=== PATIENT | female | born 1960 | race Caucasian/White ===

== ENCOUNTER 2020-11-18 15:38 | Outpatient (CLI) | payer BC, SELFPAY ==
--- NOTE | ~2020-11-18 | MM_ITS ---
EXAMINATION: MM screening hermelinda BI w luis alberto HISTORY: Screening TECHNIQUE: Craniocaudal and mediolateral oblique 3-D tomosynthesis images were obtained and synthetic 2-D images were generated. CAD analysis was submitted and interpreted. COMPARISON: 09/02/2015 BREAST PARENCHYMAL COMPOSITION: There are scattered areas of fibroglandular density. FINDINGS: There is no evidence of suspicious mass, calcification, or architectural distortion to sugg est malignancy in either breast. There has been no suspicious interval change. IMPRESSION: 1. No mammographic evidence of malignancy. 2. Recommend routine screening mammography in one year. BI-RADS Category 1: Negative Reviewed, dictated and finalized at location A.
== END 2020-11-18 15:39 | disposition home or self-care (01) ==
LOC: ANHIMG 15:40
PROVIDERS: PCP Family Medicine; Visit Provider Obstetrics & Gynecology
DX: Z12.31 Encounter for screening mammogram for malignant neoplasm of breast (principal)
CPT/HCPCS: 77063; 77067

== ENCOUNTER 2020-11-23 13:36 | Outpatient (CLI) | payer BC, SELFPAY ==
--- NOTE | ~2020-11-23 | XR_ITS ---
EXAMINATION: XR fl inj shoulder LT - MR/CT DATE: 11/23/2020 14:20 INDICATION: Left shoulder pain. TECHNIQUE: A time-out was performed to verify the patient's name, date of , and procedure to b e performed. The procedure including the risks, benefits, and alternatives was discussed with the pat ient. Risks discussed included bleeding and infection. The patient understood the risks and agreed to proceed. The skin overlying the left glenohumeral joint was prepped and draped in usual sterile fash ion. Anesthetic was administered with 1% lidocaine subcutaneously. A 22 G needle was advanced under fluoroscopic guidance into the joint. Subsequently, injectate consisting of 12 mL of 1:200 Multihan ce, 1:4 1% lidocaine, and 1:4 Omnipaque 240 was instilled. The needle was removed and the entry site was cleaned and dressed. There were no immediate complications. Fluoroscopy exposure time was 0.0 m inutes. The total number of images was 3. FINDINGS: Real-time fluoroscopy demonstrates the needle and contrast in the left glenohumeral joint. IMPRESSION: 1. Successful left glenohumeral joint injection of contrast for subsequent MR arthrography. Reviewed, dictated and finalized at location A. IMPRESSION: 1. Successful left glenohumeral joint injection of contrast for subsequent MR a rthrography.
--- NOTE | ~2020-11-23 | MR_ITS ---
EXAMINATION: MR shoulder LT w con DATE: 11/23/2020 15:39 INDICATION: Left shoulder pain TECHNIQUE: Magnetic resonance imaging (MRI) of the left shoulder was performed following intra-artic ular gadolinium contrast injection and without intravenous contrast. Details of the glenohumeral join t injection have been dictated separately. Sequences included axial T2-weighted FS FSE, axial T1-santhosh ghted FS FSE, coronal oblique T1-weighted FS FSE, coronal oblique T2-weighted FSE, sagittal T2-weight ed FS FSE, sagittal T1-weighted FSE, and ABER (abduction external rotation) T1-weighted FS FSE. COMPARISON: None. FINDINGS: Coracoacromial arch: Status post acromioplasty and distal clavicle resection. Rotator cuff: The subscapularis and teres minor tendons are normal. Postoperative change of prior supraspinatus ten don tear repair with a couple suture anchors along the superior facet of the greater tuberosity. Ther e is residual versus recurrent articular sided tear of the supraspinatus tendon with the tear margin which involves approximately 50% the tendon thickness is retracted approximately 2.5-3 cm medially. T here is contrast imbibition into the remaining intact tendon with small amount of contrast extending more superficially into the subacromial/subdeltoid bursa consistent with a full-thickness perforation . There is however no measurable fluid/contrast filled tear defect. Mild tendinopathy of the distal i nfraspinatus tendon without discrete tear. No significant rotator cuff muscle atrophy. Biceps tendon, glenoid labrum and glenohumeral cartilage: Long head of the biceps tendon is intact. Glenoid labrum and glenohumeral cartilage are normal. Bones and other: Normal marrow signal with no edema, fracture or pathologic marrow replacing process. There is contras t extravasation into the soft tissues surrounding the deep subscapular recess which tracks medially a long the deep and cephalad margins of the subscapularis muscle. IMPRESSION: 1. Status post supraspinatus tendon repair with residual/recurrent articular sided tear involving edil roximately 50% the tendon thickness and with 2.5-3 cm medial retraction. Full-thickness perforation w ith contrast extending into the subacromial/subdeltoid bursa without a measurable full-thickness tear defect. Reviewed, dictated and finalized at location A. IMPRESSION: 1. Status post supraspinatus tendon repair with residual/recurrent articular si ded tear involving approximately 50% the tendon thickness and with 2.5-3 cm med ial retraction. Full-thickness perforation with contrast extending into the sub acromial/subdeltoid bursa without a measurable full-thickness tear defect.
== END 2020-11-23 13:37 | disposition home or self-care (01) ==
LOC: ANHIMG 13:37
PROVIDERS: PCP Family Medicine; Visit Provider Orthopaedic Surgery
DX: M25.512 Pain in left shoulder (principal); Z98.890 Other specified postprocedural states; S46.812A Strain of other muscles, fascia and tendons at shoulder and upper arm level, left arm, initial encounter
CPT/HCPCS: 23350; 73222; A9577

== ENCOUNTER 2021-02-24 00:23 | Day surgery (SDC) | payer BC, SELFPAY ==
[2021-02-21 10:12] VITALS: BMI 35.7
--- NOTE | 2021-02-21 10:22 | SUR.PREOP ---
Report to the Outpatient Waiting Room, entrance under the green pavilion located off [facility], at time __0600__ on date ___02/24/21____. OR Time: __729__. - You and your visitor will be asked a series of questions to screen for COVID 19 for your protection. - A mask is required within the hospital. - Only one visitor is allowed at this time. Patient visitors will be guided where to wait when not with patient. Preoperative COVID Testing Requirements: No COVID Test needed if: (proof is required; if not received patient will have Rapid Test prior to entry) - Patient has received COVID Vaccine at least 14 days prior to procedure date or - Patient has positive COVID test result within last 90 days of surgery date. COVID Test needed if above criteria is not met If not COVID vaccinated a COVID test must be conducted within 72 hours of surgery and patient is asked to isolate self from time of testing until procedure. You will go to the [employer] [facility] for your COVID testing. The [employer] [facility] Testing site is located at the corner of [address] [facility]. You will only be called if COVID results are positive and your surgeon may reschedule your elective surgery date. Patients may have clear liquids (water, carbonated beverages, clear teas, apple juice) until 3 hours prior to surgery with a maximum of 20 ounces. - No food from midnight until time of surgery - Infants may have breast milk until 4 hours before surgery, infant formula 6 hours prior to surgery. - Children will be allowed to drink immediately following surgery. If applicable, please bring a bottle or sippy cup to assist with drinking. Juice, water, soda, and popsicles are readily available. For infants on formula, please bring formula the day of surgery. Pacifiers are allowed. Take the following medications with a SIP of water the morning of surgery: 0430 Medications to discontinue per physician _candesartan/HCTz, Vitamin D Date to take last dose - don't take morning of surgery__ Please no make-up, nail swedish, hairspray, perfume, deodorant, or body powder the day of surgery. No jewelry (including any body piercings) or valuables the day of surgery, leave them at home. Please take a shower or bath the night before, or the morning of, surgery with an antibacterial soap. Wear comfortable, loose fitting clothing. Children are encouraged to wear pajamas. - Jewelry must be removed prior to entering the operating room. Rings and piercings that are not removed may be cut off. - The hospital will not accept responsibility for valuables. - Please leave all valuables, including medications, at home the day of surgery. If you are going home after surgery, a licensed residential recycle driver must drive you home. - NO public transportation without another adult. - We recommend that an adult stay with you for 24 hours following discharge. - We also recommend that you do not drive, make important decision, drink alcoholic beverages, or take any drugs that were not prescribed by your health care provider for at least 24 hours after your discharge time. For Pediatric surgeries, we recommend two adults accompany the child home (only one inside the building at this time). Follow any additional instructions given to you from your surgeon. Telephone instructions given to ____patient and asked if any additional questions and then verbalized understanding. Patient advised to call surgeon office or pre surgery nurse liaison [phone] if any additional questions.
--- NOTE | 2021-02-23 14:40 | P.PNAN_ITS ---
Anes - Initial Pre Proc Eval Procedure: Operation Date: 02/24/21 07:30 Proposed Procedures p Left Open Rotator Cuff Repair - Yasmany Donovan MD Date/Time: 02/23/21 14:40 Surgeon: Yasmany Donovan MD Pre Op Diagnosis: left rotator cuff tear Patient Data Age: 60 Gender: F Height: 1.65 m Weight: 97.52 kg Allergies Allergy/AdvReac Type Severity Reaction Status Date / Time No Known Allergies Allergy Unknown NONE Verified 02/24/21 06:25 Home Medications Medication Instructions Recorded Confirmed Type chlorhexidine gluconate 4 % 1 applic TOPICAL ONCE #237 ml 12/08/20 02/21/21 Rx topical liquid candesartan-hydrochlorothiazid 0.5 tablet PO DAILY 02/21/21 02/24/21 History cholecalciferol (vitamin D3) 1,250 mcg PO WEEKLY 02/21/21 02/24/21 History hydrocodone-acetaminophen 1 tablet PO QID PRN 02/21/21 02/24/21 History Patient hx anesthesia problems: none Family hx anesthesia problems: none Results Review: All pre-operative results and documents have been reviewed as part of the pre-operative evaluation. FORMERLY [facility] Past Medical History Medical History (Updated 02/23/21 @ 14:41 by Richy George MD) Chronic narcotic use HTN (hypertension) Left shoulder pain Obesity Surgical History Surgical History H/O repair of left rotator cuff 2008 H/O repair of right rotator cuff 2011 Family History Family History Other High cholesterol Hypertension Social History Social History (Updated 01/26/21 @ 14:05 by Tete Florian MA) Smoking packs per day: 1.5 Smoking cigarettes per day: 30.0 Years smoked: 10 Smoking pack-years: 15.00 Smoking status: Never smoker Tobacco type: cigarettes Second hand tobacco smoke exposure: No Alcohol intake: never Substance use: never Living arrangements: alone Gender identity (if verbalized by the patient): Female Anes - Eval Final PreProcedure Day of Procedure 02/23/21 14:40 Patient weight: obese Heart: regular rate and rhythm Lungs: clear to auscultation and normal air movement Airway: Mallampati scale class II Neurological: alert and oriented Last oral intake: >/= 8 hours ASA classification: III Emergent: no Anesthetic plan: proceed Anesthesia type and monitoring: general ETT Results Review: All pre-operative results and documents have been reviewed as part of the pre-operative evaluation. Informed Consent: The patient's anesthetic plan and its attendant risks and benefits were discussed with the patient/family/POA. Questions were solicited and answers provided to the satisfaction of the patient/family/POA.
--- NOTE | 2021-02-23 14:42 | WPDANESPNB ---
Anes - Peripheral Nerve Block Date/Time: 02/23/21 14:42 I have discussed with the patient/family/POA the placement of a peripheral nerve block for post-operative pain management, including associated risks, benefits, complications, and side effects. Alternative methods of post-operative analgesia were detailed. Questions were solicited and answers provided to the satisfaction of the patient/family/POA. Time-Out: A pre-procedural Time-Out was completed immediately before starting the procedure and confirmed: Patient Identification, Site, Procedure, Patient Position and the Availability of Requisite Equipment. Clinical Indications: Acute post-operative pain management requested by the operative surgeon. Nerve Block Insertion Note Anes-nerve block: supraclavicular left Patient position: supine Skin prep: chlorhexidine Needle: 22 gauge, stimulating, insulated echogenic needle. Needle length: 80 mm Technique: ultrasound (in plane) Injectate: bupivacaine 0.5% with epi 5 mcg/ml (20cc) Observations: tolerated well Complications: none Procedure start time:: 730 Procedure end time:: 735
[2021-02-24] VITALS (12 sets, daily range): BP systolic 110–142; BP diastolic 53–77; PULSE 59–88; RESP 14–16; TEMP 36.4–36.8; O2SAT 94–100
[2021-02-24] MEDS: ACETAMINOPHEN 500 MG TABLET 1000 MG PO (06:29)
[2021-02-24] MEDS: CELECOXIB 200 MG CAPSULE PO (06:29)
[2021-02-24] MEDS: LACTATED RINGERS 1,000 ML 30 ML IV CONT ×2 (06:58→11:30)
--- NOTE | 2021-02-24 07:40 | WPDHPUPDATE1 ---
History and Physical Update Update Date/Time: 02/24/21 07:40 History and Physical has been reviewed, including an updated exam of the patient. There are NO changes in the patient's condition. Risks, benefits, and alternatives have been discussed and questions answered. Patient agrees to proceed with procedure.
[2021-02-24] MEDS: ceFAZolin 2 GM/D5W 50 ML 2 GM/50 ML BAG IVPB (07:43)
--- NOTE | 2021-02-24 10:58 | SUR.PHASEI ---
1055- pt states pain level in shoulder is a 5, but drifts back of to sleep.
[2021-02-24] MEDS: fentaNYL CITRATE INJ (*CRX) 100 MCG/2 ML VIAL 25 MCG IV PUSH ×2 (11:05→11:18)
--- NOTE | 2021-02-24 11:18 | P.OP_ITS ---
Procedure Note - Detailed Date of Procedure 02/24/21 Pre-op Diagnosis left rotator cuff tear Post-op Diagnosis same Procedure Performed REPAIR LEFT ROTATOR CUFF WITH BICEPS TENODESIS Surgeon Yasmany Donovan MD Anesthesia general Description of Procedure THE PATIENT WAS TAKEN TO THE OPERATING ROOM AND THEN INTUBATED AND PLACED IN THE BEACH CHAIR POSITION. THE LEFT UPPER EXTREMITY WAS PREPPED AND DRAPED IN THE NORMAL STERILE FASHION. AN INCISION WAS MADE OVER THE OLD INCISION IN BETWEEN THE MANOLO-LATERAL ACROMION AND THE AC JOINT. THE FASCIA WAS IDENTIFIED. NEXT A MINI OPEN INCISION WAS MADE THROUGH THE DELTOID MUSCLE EXPOSING THE SUBACROMIAL SPACE. A LIMITED ACROMIOPLASTY WAS PREFORMED. THE ROTATOR CUFF WAS IDENTIFIED. THERE WAS ABUNDANT AMOUNT OF BURSAL TISSUE AND SCAR TISSUE IN THE SUB ACROMIAL SPACE. THE SCAR AND BURSAL TISSUE WAS EXCISED ALLOWING FOR BETTER VISUALIZATION OF THE ROTATOR CUFF. THERE WAS A NEAR FULL THICKNESS TEAR TO THE INSERTION OF THE SUPRASPINATUS. THERE WAS A NEAR FULL THICKNESS TEAR TO THE BICEPS TENDON. THERE WAS A FULL THICKNESS TEAR AT THE CUFF INTERVAL. THE GREATER TUBEROSITY WAS DEBRIDED DOWN TO GOOD BLEEDING BONE. THE ROTATOR CUFF INTERVAL WAS REPAIRED WITH 2 ETHIBOND.THEN 3 ARTHREX 5.5 SUTURE ANCHORS WERE PLACED IN TO GOOD BONE AND HAD VERY GOOD BITES. HALEIGH-KENTRELL TYPE REPAIRS WERE DONE TO THE ROTATOR CUFF AND THERE WAS GOOD APPROXIMATION TO THE GREATER TUBEROSITY. THE REPAIR WAS EXCELLENT. THERE WAS NO IMPINGEMENT ON THE REPAIR FROM THE ACROMION WITH RANGE OF MOTION. THE BICEPS TENDON WAS THEN TENODESED TO THE PROXIMAL HUMERUS JUST DISTAL TO THE HUMERAL HEAD USING 2 ETHIBOND. THE WOUND WAS IRRIGATED WITH COPIOUS AMOUNTS OF ANTIBIOTIC SOLUTION. THE DELTOID MUSCLE WAS REPAIRED WITH #2 FIBER WIRE AND 0 VICRYL SUTURE. THE SUBCUTANEOUS LAYER WAS APPROXIMATED WITH 2- 0 VICRYL. THE SKIN WAS APPROXIMATED WITH 3-0 QUIL AND DERMABOND. STERILE DRESSING WAS APPLIED. PATIENT WAS EXTUBATED. Estimated Blood Loss 50 Complications No immediate complications Condition stable Disposition PACU
[2021-02-24] MEDS: ONDANSETRON INJ 4 MG/2 ML VIAL IV PUSH (11:38)
--- NOTE | 2021-02-24 11:38 | SUR.PHASEI ---
1145- c/o nausea. medicated for same.
--- NOTE | 2021-02-24 13:53 | SUR.PHASEII ---
Dr. Donovan was contacted via cell phone. He will send a prescription to patient's pharmacy for zofran.
[2021-02-24] MEDS: SCOPOLAMINE 1.5 MG PATCH TRANSDERM (13:58)
== END 2021-02-24 14:17 | disposition home or self-care (01) ==
PROVIDERS: PCP Family Medicine; Visit Provider Orthopaedic Surgery
PROC: (CPT 23420; principal; 2021-02-24 07:30)
DX: S46.012A Strain of muscle(s) and tendon(s) of the rotator cuff of left shoulder, initial encounter (principal); S46.112A Strain of muscle, fascia and tendon of long head of biceps, left arm, initial encounter; V91.83XA Other injury due to other accident to other powered watercraft, initial encounter; F17.210 Nicotine dependence, cigarettes, uncomplicated; G89.18 Other acute postprocedural pain; I10 Essential (primary) hypertension; E66.9 Obesity, unspecified; Z68.35 Body mass index [BMI] 35.0-35.9, adult
CPT/HCPCS: 64415; 23430; 23410; A9270; C1713; J0330; J0690; J1100; J1885; J2250; J2370; J2405; J2704; J2710; J3010; J7120

== ENCOUNTER 2021-04-18 16:00 | Outpatient (RCR) | payer BC, SELFPAY ==
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
--- NOTE | 2021-04-17 11:25 | PCPTNOTE ---
Patient called & cancelled scheduled appointment this date due to having to work.
--- NOTE | 2021-05-15 09:51 | PCPTNOTE ---
Admitting Provider: Attending Provider: Yasmany Donovan MD Patient:Leticia Millan Date of :1960 Physical Therapy Discharge Summary Patient has not returned for any further treatments since 04/18/2021, therefore she will be discharged at this time. Patient?s initial visit was on 03/17/2021 08:30 and she had a total of 6 visits with 5 missed visits. The goals have been not met due to limited visits received. Thank you for referring this patient to [facility]. Please review, sign, date and return this discharge summary LUISA. I have been updated about the patient's current status and I agree with discharge from the above service at this time. Referring Physician Date
== END 2021-05-15 14:25 | disposition home or self-care (01) ==
LOC: ANHPT 16:00
PROVIDERS: PCP Family Medicine; Visit Provider Orthopaedic Surgery
DX: Z48.89 Encounter for other specified surgical aftercare (principal)
CPT/HCPCS: 97014; 97110; 97140; 97162; G0283

== ENCOUNTER 2022-01-23 16:33 | Outpatient (CLI) | payer BC, SELFPAY ==
--- NOTE | ~2022-01-23 | MM_ITS ---
EXAMINATION: MM screening hermelinda BI w luis alberto HISTORY: Screening TECHNIQUE: Craniocaudal and mediolateral oblique 3-D tomosynthesis images were obtained and synthetic 2-D images were generated. CAD analysis was submitted and interpreted. COMPARISON: Comparison to multiple prior studies sequentially, with oldest reviewed study dated 09/01. BREAST PARENCHYMAL COMPOSITION: Breast composition is almost entirely fatty FINDINGS: There is no evidence of suspicious mass, calcification, or architectural distortion to sugg est malignancy in either breast. There has been no suspicious interval change. IMPRESSION: 1. No mammographic evidence of malignancy. 2. Recommend routine screening mammography in one year. BI-RADS Category 1: Negative Reviewed, dictated and finalized at location A.
== END 2022-01-23 16:34 | disposition home or self-care (01) ==
PROVIDERS: PCP Family Medicine; Visit Provider Obstetrics & Gynecology
DX: Z12.31 Encounter for screening mammogram for malignant neoplasm of breast (principal)
CPT/HCPCS: 77063; 77067

== ENCOUNTER 2024-01-17 14:27 | Outpatient (CLI) | payer BC, SELFPAY ==
[2024-01-17 15:00] LABS: Anion Gap 7 mmol/L (4-12); Blood Urea Nitrogen 15 mg/dL (7-17); Calcium 8.9 mg/dL (8.4-10.2); Carbon Dioxide 33 mmol/L (22-30); Chloride 98 mmol/L (98-107); Estimated Glomerular Filt Rate > 60; Glucose 126 mg/dL (65-110); Potassium 3.7 mmol/L (3.4-5.0); Sodium 138 mmol/L (137-145)
== END 2024-01-17 14:28 | disposition home or self-care (01) ==
LOC: ANHLAB 14:30
PROVIDERS: PCP Family Medicine; Visit Provider Anesthesiology
DX: Z79.899 Other long term (current) drug therapy (principal)
CPT/HCPCS: 36415; 80048

== ENCOUNTER 2024-01-27 00:15 | Day surgery (SDC) | payer BC, SELFPAY ==
[2024-01-16 09:46] VITALS: BMI 35.4
--- NOTE | 2024-01-16 09:47 | PC.NURSE ---
Report to the Outpatient Waiting Room, entrance under the green pavilion located off [facility], at time _0630_ on date _[id number]_. Planned Procedure Time: _0830_.? Time changes happen often and if your time is changed the preop area will call you the afternoon before. - You and your visitor will be asked to self-screen and do not enter if you have any COVID symptoms. Please call surgeon if you need to reschedule. - A mask is optional within the hospital at this time. Patients may have clear liquids (water, carbonated beverages, clear teas, apple juice) until 3 hours prior to surgery with a maximum of 20 ounces. - No food from midnight until time of surgery and no smoking Take only the following medications with a SIP of water on the morning of surgery: ___Hydrocodone/acetaminophen if needed. DO NOT STOP ANY OF YOUR OTHER PRESCRIPTION MEDICATIONS PRIOR TO SURGERY EXCEPT THE FOLLOWING Medications to discontinue per physician ____Ibuprofen per Dr Espino. Date to take last dose Please no make-up, nail brit[place] virgin islander, hairspray, perfume, deodorant, or body powder the day of surgery.? No jewelry (including any body piercings) or valuables the day of surgery, leave them at home.? Please take a shower or bath the night before, or the morning of, surgery with an antibacterial soap.? Wear comfortable, loose fitting clothing.? . - Jewelry must be removed prior to entering the operating room.? Rings and piercings that are not removed may be cut off. - The hospital will not accept responsibility for valuables.? - Please leave all valuables, including medications, at home the day of surgery. If you are going home after surgery, a licensed team otr truck driver must drive you home.? - NO public transportation without another adult if you receive anesthesia. - We recommend that an adult stay with you for 24 hours following discharge. - We also recommend that you do not drive, make important decision, drink alcoholic beverages, or take any drugs that were not prescribed by your health care provider for at least 24 hours after your discharge time. Follow any additional instructions given to you from your surgeon. Telephone instructions given to _Kimberly___and asked if any additional questions and then verbalized understanding. Patient advised to call surgeon office or pre surgery nurse liaison [phone] if any additional questions.
--- NOTE | 2024-01-26 07:46 | P.HP_ITS ---
H&P: HPI History of Present Illness Date/Time: 01/26/24 07:46 Chief Complaint: Thickened endometrium Narrative: Leticia is a 63yo postmenopausal G0, who presents for surgery. She presented to her [facility] 11/2023 and endorsed some RLQ pain. She has a normal pap 11/2022. She is not sexually active. She denied any breast issues. No PMB, but LABORATORY CHEMIST US was performed for the RLQ pain and she was found to have thickened and irregular endometrial lining. Review of Systems Constitutional: Constitutional: Denies chills, Denies fever(s) and Denies headache(s) Eyes: Eyes: Denies change in vision ENT: Denies dizziness and Denies headache(s) Cardiovascular: Cardiovascular: Denies chest pain and Denies dyspnea Respiratory: Respiratory: Denies cough and Denies dyspnea Gastrointestinal: Gastrointestinal: Denies abdominal pain and Denies change in stool character Genitourinary: Genitourinary: Denies abnormal menses, Reports pelvic pain, Denies vaginal discharge, Denies vaginal odor and Denies vaginal pruritus Neurologic: Denies dizziness and Denies headache(s) Psychiatric: Psychiatric: Denies anxiety and Denies depression [facility] Past Medical History Medical History Chronic narcotic use HTN (hypertension) Left shoulder pain Obesity Surgical History Surgical History H/O repair of left rotator cuff 2008 H/O repair of right rotator cuff 2011 Family History Family History Other High cholesterol Hypertension Social History Social History Smoking packs per day: 1 Smoking cigarettes per day: 20.0 Years smoked: 10 Smoking pack-years: 10.00 Smoking status: Former smoker Tobacco type: cigarettes Second hand tobacco smoke exposure: No Smoking end date: 01/15/94 Alcohol intake: current Substance use: never Substance use type: opiates Lack of Transportation: No Lack of Food: Never True Current Housing: I Have Housing Concerned About Future Housing: No Difficulty Paying Gas/Electric Bills: No Difficulty Paying for Meds: No Currently Unemployed: No Education: High School Diploma/GED Difficulty w/ Childcare or Family Care: No Living arrangements: with family Occupation/Education: occupation Additional occupation/education comments: [employer] Gender identity (if verbalized by the patient): Female Sexual Orientation (if Verbalized by the Patient): Straight or Heterosexual Spiritual care concerns: No Meds Home Medications and Allergies Home Medications Medication Instructions Recorded Confirmed Type hydrocodone 10 mg-acetaminophen 1 tablet PO QID PRN Pain 11/23/22 01/16/24 History 325 mg tablet candesartan 32 0.5 tablet PO DAILY 11/27/23 01/16/24 History mg-hydrochlorothiazide 25 mg tablet ibuprofen 800 mg tablet 800 mg PO TID PRN Pain 11/27/23 01/16/24 History Allergies Allergy/AdvReac Type Severity Reaction Status Date / Time No Known Allergies Allergy Unknown NONE Verified 01/16/24 09:39 Exam Const: General: cooperative, healthy appearing, comfortable and no acute distress Orientation/consciousness: patient oriented x3 Resp: Effort & Inspection: normal respiratory effort Cardio: Rate: regular rate GI: Inspection: normal to inspection GI Palp: No abdominal tenderness and Yes Soft to palpation : Other: deferred to OR Skin: General skin exam: normal color Neuro: General: patient oriented x3 Extrem: General: normal to inspection Psych: Appearance: grossly normal Affect: normal affect Attitude: cooperative Assessment and Plan Assessment and plan (1) Endometrial thickening on ultrasound: Code(s): R93.89 - Abnormal findings on diagnostic imaging of other specified body structures Status: Acute Plan - Thickened lining with irregularity noted on LABORATORY CHEMIST US - Proceed with hysteroscopy with D&C - Risks and benefits discussed in detail
[2024-01-27] MEDS: ACETAMINOPHEN 500 MG TABLET 1000 MG PO (07:04)
[2024-01-27 07:08] VITALS: BP 139/75; PULSE 67; RESP 18; TEMP 36.6; O2SAT 100
--- NOTE | 2024-01-27 07:13 | WPDHPUPDATE1 ---
History and Physical Update Update Date/Time: 01/27/24 07:13 History and Physical has been reviewed, including an updated exam of the patient. There are NO changes in the patient's condition. Risks, benefits, and alternatives have been discussed and questions answered. Patient agrees to proceed with hysteroscopy with D&C.
--- NOTE | 2024-01-27 07:18 | P.PNAN_ITS ---
Anes - Initial Pre Proc Eval Procedure: Operation Date: 01/27/24 08:30 Proposed Procedures p Hysteroscopy Dilation and Curettage - Ritika Espino MD Date/Time: 01/27/24 07:18 Surgeon: Ritika Espino MD Pre Op Diagnosis: Endometrial Hyperplasia Patient Data Age: 63 Gender: F Height: 1.65 m Weight: 96.3 kg Last Vital Signs Temp 36.6 C 01/27/24 07:08 Pulse 67 01/27/24 07:08 Resp 18 01/27/24 07:08 BP 139/75 01/27/24 07:08 Pulse Ox 100 01/27/24 07:08 O2 Del Method Room Air 01/27/24 07:08 Allergies Allergy/AdvReac Type Severity Reaction Status Date / Time No Known Allergies Allergy Unknown NONE Verified 01/27/24 06:53 Home Medications Medication Instructions Recorded Confirmed Type hydrocodone 10 mg-acetaminophen 1 tablet PO QID PRN Pain 11/23/22 01/27/24 History 325 mg tablet candesartan 32 0.5 tablet PO DAILY 11/27/23 01/27/24 History mg-hydrochlorothiazide 25 mg tablet ibuprofen 800 mg tablet 800 mg PO TID PRN Pain 11/27/23 01/27/24 History Patient hx anesthesia problems: none Family hx anesthesia problems: none Results Review: All pre-operative results and documents have been reviewed as part of the pre- operative evaluation. [facility] Past Medical History Medical History Chronic narcotic use HTN (hypertension) Left shoulder pain Obesity Surgical History Surgical History H/O repair of left rotator cuff 2008 H/O repair of right rotator cuff 2011 Family History Family History Other High cholesterol Hypertension Social History Social History Smoking packs per day: 1 Smoking cigarettes per day: 20.0 Years smoked: 10 Smoking pack-years: 10.00 Smoking status: Former smoker Tobacco type: cigarettes Second hand tobacco smoke exposure: No Smoking end date: 01/15/94 Alcohol intake: current Substance use: never Substance use type: opiates Lack of Transportation: No Lack of Food: Never True Current Housing: I Have Housing Concerned About Future Housing: No Difficulty Paying Gas/Electric Bills: No Difficulty Paying for Meds: No Currently Unemployed: No Education: High School Diploma/GED Difficulty w/ Childcare or Family Care: No Living arrangements: with family Occupation/Education: occupation Additional occupation/education comments: [employer] Gender identity (if verbalized by the patient): Female Sexual Orientation (if Verbalized by the Patient): Straight or Heterosexual Spiritual care concerns: No Anes - Eval Final PreProcedure Day of Procedure 01/27/24 07:18 Patient weight: obese Heart: regular rate and rhythm Lungs: clear to auscultation Airway: Mallampati scale class II Neurological: alert and oriented Last oral intake: >/= 8 hours ASA classification: III Emergent: no Anesthetic plan: proceed Anesthesia type and monitoring: general GIVS and standard monitoring Results Review: All pre-operative results and documents have been reviewed as part of the pre- operative evaluation. Informed Consent: The patient's anesthetic plan and its attendant risks and benefits were discussed with the patient/family/POA. Questions were solicited and answers provided to the satisfaction of the patient/family/POA.
[2024-01-27] MEDS: LACTATED RINGERS 1,000 ML 30 ML IV CONT (07:29)
[2024-01-27 08:55] VITALS: BP 118/62; PULSE 65; RESP 12; O2SAT 95
--- NOTE | 2024-01-27 08:57 | P.OP_ITS ---
Procedure Note - Detailed Date of Procedure 01/27/24 Pre-op Diagnosis Thickened Endometrium noted on WIRER MAINTENANCE US Post-op Diagnosis Same Procedure Performed Hysteroscopy with D&C Surgeon Ritika Espino MD Anesthesia MAC Findings Stenotic cervix with scaring. Small polyp noted on posterior uterine wall/upper portion of cervix. Uterine cavity with fluid, but also distorted due to scar tissue; left tubal ostia visualized, right not fully seen. Good hemostasis at end of case. Fluid deficit: 140cc Description of Procedure Leticia was taken to the operating room where she was placed under sedation without complications. She was then prepped and draped in the usual sterile fashion in the dorsal lithotomy position with her legs in low Jsutin stirrups. A time-out was performed and no perioperative antibiotics were indicated. A bivalve speculum was placed within the vagina where the cervix was easily identified. The anterior lip of the cervix was grasped with a single-tooth tenaculum. The cervix was partially dilated, enough to allow for the hysteroscope to be placed within the cervix. The hysteroscope was slowly and carefully advanced into the uterine cavity with the above findings noted. The Aveta shaver was then used to remove the polyp and sample the entire the cavity. Some of the scar tissue was removed and the left tubal ostia was better visualized. Good hemostasis was noted. All instruments were removed from the vagina. Sponge, lap, instrument, and needle counts were correct at the end of the procedure. Patient was awoken from anesthesia and taken to recovery with plans of same-day discharge home. Estimated Blood Loss 5 IV Fluids 400 Pathology Yes (Endometrial shavings) Complications No immediate complications Condition Stable Disposition Same day [facility] Billing Surgery - Charge Forward: Surgery Billing
[2024-01-27 09:25] VITALS: BP 126/73; PULSE 60; RESP 16
[2024-01-27 09:55] VITALS: BP 129/62; PULSE 61; RESP 16
== END 2024-01-27 10:00 | disposition home or self-care (01) ==
PROVIDERS: PCP Family Medicine; Visit Provider Obstetrics & Gynecology
PROC: 0U5B8ZZ Destruction of Endometrium, Via Natural or Artificial Opening Endoscopic (ICD-10-PCS; CPT 58563; principal; 2024-01-27 08:30)
DX: R93.89 Abnormal findings on diagnostic imaging of other specified body structures (principal); N84.0 Polyp of corpus uteri; N88.2 Stricture and stenosis of cervix uteri; I10 Essential (primary) hypertension; E66.9 Obesity, unspecified; Z68.35 Body mass index [BMI] 35.0-35.9, adult; Z79.891 Long term (current) use of opiate analgesic; Z79.899 Other long term (current) drug therapy; Z79.1 Long term (current) use of non-steroidal anti-inflammatories (NSAID); Z98.890 Other specified postprocedural states; Z87.891 Personal history of nicotine dependence
CPT/HCPCS: 58558; 88305; A9270; J1100; J2003; J2250; J2405; J2704; J3010; J7030; J7120

== ENCOUNTER 2024-07-12 16:30 | Emergency (ER) | payer OTHER, SELFPAY ==
[2024-07-12 16:39] VITALS: BP 148/73; PULSE 75; RESP 20; TEMP 36.6; O2SAT 100
--- NOTE | 2024-07-12 16:39 | ED_ITS ---
HPI - Wound/Laceration General Chief Complaint: Wound/Laceration Stated Complaint: Right Hand Thumb Laceration Time Seen by Provider: 07/12/24 16:39 Source: patient, RN notes reviewed and old records reviewed Mode of arrival: ambulatory Limitations: no limitations History of Present Illness HPI narrative: 63-year-old female presents to [facility] with a right outer aspect of the thumb laceration. happened just prior to arrival. Patient was slicing potatoes possibly with a mandoline. Patient reports last Tdap 2 years ago Related Data Home Medications ?Medication ?Instructions ?Recorded ?Confirmed ?Last Taken ?Type candesartan 32 0.5 tablet PO DAILY 11/27/23 02/13/24 01/27/24 History mg-hydrochlorothiazide 25 mg tablet Allergies Allergy/AdvReac Type Severity Reaction Status Date / Time No Known Allergies Allergy Unknown NONE Verified 07/12/24 16:32 Review of Systems Review of Systems: All systems reviewed & are unremarkable except as noted in HPI and below Constitutional: Constitutional: Reports no additional constitutional complaints ENT: Reports system reviewed and no additional complaints, except as documented Cardiovascular: Cardiovascular: Reports no additional cardiovascular complaints, Denies chest pain and Denies dyspnea Respiratory: Respiratory: Reports no additional respiratory complaints, Denies chest congestion, Denies cough and Denies dyspnea Musculoskeletal: Musculoskeletal: Reports no additional musculoskeletal complaints Integumentary/Breasts: Skin/Breast: Reports as per HPI [facility] Past Medical History Medical History Chronic narcotic use HTN (hypertension) Obesity Left shoulder pain Surgical History Surgical History History of hysteroscopy (01/27/24) hysteroscopy D&C/ benign pathology of polyp H/O repair of right rotator cuff 2011 H/O repair of left rotator cuff 2009 Family History Family History Other High cholesterol Hypertension Social History Social History Smoking packs per day: 1 Smoking cigarettes per day: 20.0 Years smoked: 10 Smoking pack-years: 10.00 Smoking status: Former smoker Tobacco type: cigarettes Second hand tobacco smoke exposure: No Smoking end date: 01/15/94 Alcohol intake: current Substance use: never Substance use type: opiates Lack of Transportation: No Lack of Food: Never True Current Housing: Decline to Answer Concerned About Future Housing: Decline to Answer Difficulty Paying Gas/Electric Bills: Decline to Answer Difficulty Paying for Meds: Decline to Answer Currently Unemployed: Decline to Answer Education: Decline to Answer Difficulty w/ Childcare or Family Care: Decline to Answer Living arrangements: with family Occupation/Education: occupation Additional occupation/education comments: [employer] Gender identity (if verbalized by the patient): Female Sexual Orientation (if Verbalized by the Patient): Straight or Heterosexual Spiritual care concerns: No Comments At the time of my signature, I reviewed and agree with the nursing past medical, surgical, social, and family history. There is no relevant family history pertinent to the patient complaint. Exam Const: General: cooperative, healthy appearing, comfortable, no acute distress, well developed, alert and well nourished Nutritional Appearance: well nourished Orientation/consciousness: patient oriented x3 Limitations: no limitations HENMT: Head: normal to inspection Eyes: General: appearance normal, both eyes and all related structures Alignment and Position: alignment normal Neck: Neck: normal visual inspection, full ROM, no lymphadenopathy and no meningeal signs Chest: Chest palpation & inspection: normal inspection of the chest Resp: Effort & Inspection: normal respiratory effort and able to speak in complete sentences Cardio: Rate: regular rate Skin: General skin exam: normal color and no rashes or lesions noted Other: outer aspect right thumb, 2.5 cm flap of skin. Bleeding is controlled. Sensation intact. Full range of motion is noted. Neuro: General: patient oriented x3, gait normal, moves all extremities and no meningeal signs Cognition (Neuro): normal cognition Speech: normal speech Gait exam (Neuro): Normal gait present Extrem: General: normal to inspection, full ROM, capillary refill normal and normal gait Psych: Appearance: grossly normal and well kempt Mental Status: mental status grossly normal Speech and movement: Normal speech and movement present and Clear speech present Affect: normal affect Attitude: cooperative Course Course Level of Care: Express Care Visit Vital Signs Vital signs: Vital Signs Temperature 97.9 F 07/12/24 16:39 Pulse Rate 75 07/12/24 16:39 Respiratory Rate 20 07/12/24 16:39 Blood Pressure 148/73 H 07/12/24 16:39 Pulse Oximetry 100 07/12/24 16:39 Oxygen Delivery Room Air 07/12/24 16:39 Temperature 97.9 F 07/12/24 16:39 Pulse Rate 75 07/12/24 16:39 Respiratory Rate 20 07/12/24 16:39 Blood Pressure 148/73 H 07/12/24 16:39 Pulse Oximetry 100 07/12/24 16:39 Oxygen Delivery Room Air 07/12/24 16:39 Reviewed Procedures Laceration Laceration 1: Date: 07/12/24 Time: 17:22 Site: hand Side (If applicable): right Size (cm): 2.5 Description: flap Depth: simple, single layer Local Anesthetic: lidocaine 1% Amount of anesthesia used (mL): 4 Pre-repair: wound explored and irrigated (300) ====== Skin Level ====== Skin layer closed with: nylon Size (cm): 5-0 Number of sutures: 4 ====== Subcutaneous Layer ====== ====== Muscle Layer ====== ====== Tendon Layer ====== MDM - Wound/Laceration MDM Narrative Medical decision making narrative: Patient sitting comfortably in exam. Nontoxic, vitals stable. Patient in no acute distress. Patient presents with laceration to the thumb, concern for partial of motion versus flap skin, discussed possibility that we can place the natural bandage , place forced sutures but still the skin may away as well. Encourage patient to follow-up with primary care provider to check on Tdap. Patient appropriate for outpatient treatment with follow-up Discharge instructions reviewed with patient, as well as provided in writing per nursing staff. The instructions also include specific and strict return/GO TO THE ER as well as f/u information. All questions have been answered, and the patient deny any further questions with discharge and discharge plan. Some parts of this dictation were generated by voice recognition software and may contain typographical and/or grammatical inaccuracies. Differential Diagnosis Differential diagnosis: Likely laceration, abrasion and avulsion of skin Critical Care Time Critical Care Time Critical Care Time: No Discharge Plan Discharge Clinical Impression: Laceration of thumb Patient Disposition: Home, Self-Care Condition: Stable Instructions: Antibiotic Form, Care For Your Stitches (DC), Finger Laceration (ED) Additional Instructions: take Tylenol per package instructions as needed for pain Rest, ice and elevate every 2-3 hours for 15-20 minutes follow-up with your primary care provider in 10 days to have your sutures removed. do not soak your finger. Please wash twice a day with warm soapy water, pat dry. When not at home please keep it covered with a Band-Aid. One at home try leaving open to air for minimum of 4-5 hours per day. Please call your primary care provider tomorrow morning to find out when your last tetanus shot was. If it is under 5 years it is highly recommended that you update your tetanus Patient Language: Upper Sorbian Prescriptions: No Action candesartan-hydrochlorothiazid 32-25 mg tablet 0.5 tablet PO DAILY ibuprofen 800 mg tablet 800 mg PO TID Qty: 30 0RF Follow-up/Referrals: Sulaiman,Treasure High MD [Primary Care Provider] [facility] Time of Disposition: 17:33
[2024-07-12] MEDS: LIDOCAINE 1% LOCAL INJ 2 ML AMPUL 4 ML INFILTRATE (16:53)
== END 2024-07-12 17:40 | disposition home or self-care (01) ==
PROVIDERS: Emergency Provider Nurse Practitioner; PCP Family Medicine
DX: S61.011A Laceration without foreign body of right thumb without damage to nail, initial encounter (principal); W45.8XXA Other foreign body or object entering through skin, initial encounter; Y93.G1 Activity, food preparation and clean up; I10 Essential (primary) hypertension; E66.9 Obesity, unspecified; Z68.35 Body mass index [BMI] 35.0-35.9, adult; Z87.891 Personal history of nicotine dependence
CPT/HCPCS: 12001; 99212; G0463; J2003

== ENCOUNTER 2024-11-28 00:10 | Emergency (ER) | payer OTHER, SELFPAY ==
[2024-11-28 00:13] VITALS: PULSE 82; RESP 18; TEMP 37.1; O2SAT 98
--- OUTSIDE RECORDS SUMMARY | 2024-11-28 00:14 | XMS_ITS | Encounter Summary ---
Author Organization [facility] Facility Care Team Providers Care Precision Machinist Name Role Phone Russell Geiger DO Primary Care Provider + Treasure Hilario MD Primary Care Provider [phone] Constantin Alexander MD Unavailable [phone] Will Patel MD Unavailable [phone] Encounter Details Date Type Department Care Team (Latest Contact Info) Description 10/24/2016 Orders Only [facility]INCONV Provider, MD Halie [address] [place] [id number] Social History Tobacco Use Types Packs/Day Years Used Date Smoking Tobacco: Never Assessed Comments Unknown Sex and Gender Information Value Date Recorded Sex Assigned at Not on file 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 Historical Provider Final Res ult documented in this encounter Visit Diagnoses Not on filedocumented in this encounter Care Teams Precision Machinist Relationship Specialty Start Date End Date Russell Geiger DO [facility] [address] PCP - General 11/05/18 01/07/20 Treasure Hilario MD [address] [address] PCP - General Family Medicine 01/08/20 Constantin Alexander MD [address] [place] [address] [address] OL[address] [place] [id number] Anesthesiologist Pain Management 04/02/22 11/28/23 Will Patel MD [address] [place] [address] [address]IV[address] [place] [id number] Consulting Physician Anesthesiology 11/29/23 documented as of this encounter
--- OUTSIDE RECORDS SUMMARY | 2024-11-28 00:14 | XMS_ITS | Encounter Summary ---
Author Organization [facility] Facility Care Team Providers Care Inspector Penetrant Name Role Phone Russell Geiger DO Primary Care Provider + Treasure Hilario MD Primary Care Provider [phone] Constantin Alexander MD Unavailable [phone] Will Patel MD Unavailable [phone] Encounter Details Date Type Department Care Team (Latest Contact Info) Description 09/24/2014 Orders Only [facility]INCONV Provider, MD Halie [address] [place] [id number] Social History Tobacco Use Types Packs/Day Years Used Date Smoking Tobacco: Never Assessed Comments Unknown Sex and Gender Information Value Date Recorded Sex Assigned at Not on file 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 Historical Provider Final Res ult documented in this encounter Visit Diagnoses Not on filedocumented in this encounter Care Teams Inspector Penetrant Relationship Specialty Start Date End Date Russell Geiger DO [facility] [address] [address] PCP - General 11/05/18 01/07/20 Treasure Hilario MD [address] [address] PCP - General Family Medicine 01/08/20 Constantin Alexander MD [address] [place] [address] [address] [place] [id number] Anesthesiologist Pain Management 04/02/22 11/28/23 Will Patel MD [address] [place] [address] [address]IV[address] [place] [id number] Consulting Physician Anesthesiology 11/29/23 documented as of this encounter
--- OUTSIDE RECORDS SUMMARY | 2024-11-28 00:14 | XMS_ITS | Clinical Summary ---
Author Organization [facility] Address [address] [place] [address] Care Team Providers Care Hat Brim Curler Name Role Phone Treasure Hilario Primary Care Provider [phone] Allergies No known active allergies Medications ibuprofen (MOTRIN) 800 MG tabletIndication s:Nontraumatic incomplete tear of left rotator cuff take 1 tablet by mouth three times daily as needed for pain 270 tablet 1 04/03/20 23 Active Candesartan Cilexetil-HCTZ 32-25 MG TabIndications:P rimary hypertension Take 1 tablet by mouth daily. 90 tablet 3 11/27/19 25 Active HYDROcodone-acet aminophen (NORCO) 10-325 MG tabletIndication s:Chronic Pain Take 1 tablet by mouth every 6 (six) hours as needed for Pain. Indications : Chronic Pain 28 tablet 12/13/19 24 025 Discontinued(Th erapy completed) Candesartan Cilexetil-HCTZ 32-25 MG TabIndications:E ssential hypertension TAKE 1 TABLET BY MOUTH EVERY DAY 90 tablet 08/14/19 25 025 Discontinued Candesartan Cilexetil-HCTZ 32-25 MG TabIndications:P rimary hypertension TAKE 1 TABLET BY MOUTH EVERY DAY 90 tablet 11/12/19 25 025 Discontinued(Re order) Candesartan Cilexetil-HCTZ 32-25 MG TabIndications:P rimary hypertension Take 1 tablet by mouth daily. 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 07/2019 HNP (herniated nucleus pulposus), lumbar 018 Overview (11/05/2019): Formerly followed by IPM (Dr Hair) Essential hypertension 12/21/2016 Post-traumatic osteoarthritis 12/21/2016 Encounters Date Type Department Care Team Description 11/26/2024 4:20 PM CDT Office Visit [facility] Family Medicine - [address], [address] [place] [address] Treasure Hilario, DO Physical (Patient here today for annual physical.) 11/26/2024 Travel from Last 3 Months Immunizations Immunization Administration Dates Next Due FLUCELVAX (ccIIV3, TRIVALENT, 0.5mL) 03/07/2024 Flucelvax 2 YRS+ (Multi-Dose Vial) 05/08/2018 Flucelvax 6 Months+ (Prefill ed Syringe) 01/19/2020 Fluzone 6 Months+ Quad (0.5 mL Prefilled Syringe) 12/30/2020 Influenza Adult (Generic) 03/29/2023,,01/19/2020,2018 MODERNA COVID-19 (12+) MRNA, LNP-S, PF, 100 MCG/ 0.5 ML DOSE 08/12/2020,07/15/2020 MODERNA COVID-19 (DRAFTER CHIEF DESIGN AIMEE HEIDI), MRNA, LNP-S, PF, 50 MCG/ 0.25 ML DOSE 07/21/2021 Shingrix 03/29/2023 Tdap (Generic) 03/26/2018 Family History Medical History Relation Comments Hypertension Brother Cancer Maternal Grandmother family preservation caseworker Cancer Mother lung Hypertension Mother Relation Status Comments Brother Father Maternal Grandmother Mother Social History Tobacco Use Types Packs/Day Years Used Date Smoking Tobacco: Former Cigarettes 1 10 1 - 01/13/2006 Passive Smoke Exposure: Past Smokeless Tobacco: Never Tobacco Cessation:Counseling Given: No Comments:Stinks but i was thinner Alcohol Use Standard Drinks/Week Comments Yes 0 (1 standard drink = 0.6 oz pur e alcohol) 1 lizandro weekly PHQ-2 Answer Date Recorded Patient Health Questionnaire-2 Score 0 11/26/2024 Comments No Sex and Gender Information Value Date Recorded Sex Assigned at Female 11/26/2024 4:26 PM CDT Legal Sex Female 4:05 PM CDT Gender Identity Female 11/26/2024 4:26 PM CDT Sexual Orientation Not on file Last Filed Vital Signs Vital Sign Reading Time Taken Comments Blood Pressure 132/76 11/26/2024 4:20 PM CDT Pulse 73 11/26/2024 4:20 PM CDT Temperature 36.9 C (98.4 F) 11/26/2024 4:20 PM CDT Respiratory Rate 18 11/26/2024 4:20 PM CDT Oxygen Saturation 98% 11/26/2024 4:20 PM CDT Inhaled Oxygen Concentration - - Weight 101 kg (222 lb 9.6 oz) 11/26/2024 4:20 PM CDT Height 163.8 cm (5' 4.5) 11/26/2024 4:20 PM CDT Body Mass Index 37.62 11/26/2024 4:20 PM CDT Plan of Treatment Health Maintenance Due Date Last Done Comments Cervical Cancer Screening Pap Smear (Age 30 to 64) Every 3 Years 1960 Pneumococcal Vaccine: 50+ Years (1 of 1 - PCV) 2010 Zoster Vaccines (2 of 2) 05/24/2023 03/29/2023 COVID-19 Vaccine ( season) 2023 01/10/2022, 07/21/2021, 08/12/2020, Additional history exists Mammogram Screening 01/24/2024 01/23/2022, Colorectal Cancer Screening FIT-DNA (3 Years) 10/18/2024 10/18/2021, 10/18/2021 Annual Physical 11/26/2025 11/26/2024, 0811/2023, 10/05/2021, Additional history exists Cervical Cancer Screening Pap with HPV Testing (Age 30 to 64) Every 5 Years 11/24/2027 11/23/2022 Cervical Cancer Screening with HPV 11/24/2027 DTaP, Tdap and Td Vaccines (2 - Td or Tdap) 03/26/2028 03/26/2018 RSV Immunization or 60+ Years (1 - 1-dose 75+ series) 11/17/2035 Hepatitis C Completed 12/30/2020 PHQ-2 (Physician Marshall) Completed 11/26/2024 Meningococcal B Vaccine Aged Out No l onger eligible based on patient's age to complete this topic Meningococcal Vaccine Aged Out No elbert mike eligible based on patient's age to complete this topic RSV Immunizations Under 20 Months Aged Out No longer eligible based on patient's age to complete this topic Procedures Procedure Name Priority Date/Time Associated Diagnosis Comments OUTSIDE CYTOPATH CERV/VAG INTERPRET (PAP) 11/23/2022 MAMMOGRAM GENERIC (SCAN ORDER) 01/23/2022 COLOGUARD (EXACT SCIENCE) Routine 10/18/2021 10:50 AM CDT Screening for malignant neoplasm of colon HEPATITIS C ANTIBODY W/RFX TO HCV RNA Routine 12/30/2020 2:13 PM CDT from Last 3 Months or Most Recently Relevant to Health Maintenance Results * PAP SMEAR WITH HPV (11/23/2022) 11/23/2022 [facility] Scanned SCANNING Final Resu lt * MAMMOGRAM GENERIC (01/23/2022) Anatomical Region Laterality Modality Other 01/23/2022 Narrative 01/23/2022 Ordered by an unspecified provider. us Documents Scanned SCANNING Final Result * COLOGUARD (EXACT SCIENCE) (10/18/2021 10:50 AM CDT) COLOGUARD RESULT Negative Negative [facility] (CLIA #:[id number]) Comment: NEGATIVE TEST RESULT. A negative Cologuard result indicates a low likelihood that a colorectal cancer (CRC) or advanced adenoma (adenomatous polyps with more advanced pre-malignant features) is present. The chance that a person with a negative Cologuard test has a colorectal cancer is less than 1 in 1500 (negative predictive value >99.9%) or has an advanced adenoma is less than 5.3% (negative predictive value 94.7%). These data are based on a prospective cross-sectional study of 10,000 individuals at average risk for colorectal cancer who were screened with both Cologuard and colonoscopy. (Matthew Hart et al, N Engl J Med 2014;370(14):2209-5540) The normal value (reference range) for this assay is negative. COLOGUARD RE-SCREENING RECOMMENDATION: Periodic colorectal cancer screening is an important part of preventive healthcare for asymptomatic individuals at average risk for colorectal cancer. Following a negative Cologuard result, the [place] Cancer Society and U.S. Multi-Society Task Force screening guidelines recommend a Cologuard re-screening interval of 3 years. References: [place] Cancer Society Guideline for Colorectal Cancer Screening: https://www.cancer.org/cancer/bhzki-yfyrdw-bwmagv/iouugheux-csxigynut-qeiuilz/ac s-rec ommendations.html.; Mk GARZA, Shayy OLIVERA, Juan F ManciniK, Colorectal Cancer Screening: Recommendations for Physicians and Patients from the U.S. Multi-Society Task Force on Colorectal Cancer Screening , Am J Gastroenterology 2017; 112:0493-1299. TEST DESCRIPTION: Composite algorithmic analysis of stool DNA-biomarkers with hemoglobin immunoassay. Quantitative values of individual biomarkers are not reportable and are not associated with individual biomarker result reference ranges. Cologuard is intended for colorectal cancer screening of adults of either sex, 45 years or older, who are at average-risk for colorectal cancer (CRC). Cologuard has been approved for use by the U.S. FDA. The performance of Cologuard was established in a cross sectional study of average-risk adults aged 50-84. Cologuard performance in patients ages 45 to 49 years was estimated by sub-group analysis of near-age groups. Colonoscopies performed for a positive result may find as the most clinically significant lesion: colorectal cancer [4.0%], advanced adenoma (including sessile serrated polyps greater than or equal to 1cm diameter) [20%] or non- advanced adenoma [31%]; or no colorectal neoplasia [45%]. These estimates are derived from a prospective cross-sectional screening study of 10,000 individuals at average risk for colorectal cancer who were screened with both Cologuard and colonoscopy. (Matthew Hart et al, N Engl J Med 2014;370(14):2533-4182.) Cologuard may produce a false negative or false positive result (no colorectal cancer or precancerous polyp present at colonoscopy follow up). A negative Cologuard test result does not guarantee the absence of CRC or advanced adenoma (pre-cancer). The current Cologuard screening interval is every 3 years. ([place] Cancer Society and U.S. Multi-Society Task Force). Cologuard performance data in a 10,000 patient pivotal study using colonoscopy as the reference method can be accessed at the following location: www.alphacityguides/results. Additional description of the Cologuard test process, warnings and precautions can be found at www.[employer]. STOOL STOOL SPECIMEN / Unknown 10/18/2021 10:50 AM CDT 10/19/2021 7:42 PM CDT Treasure Hilario DO BODY FLUIDS AND STOOLS ORDERA BLES Final Result [employer], [facility] [address] [place] [address], [employer] (CLIA #:[id number]) [address] [place] [address] * HEPATITIS C ANTIBODY W/RFX TO HCV RNA (12/30/2020 2:13 PM CDT) HEPATITIS C AB NON-REACTI VE NON-REACT PRINCE [facility] SIGNAL TO CUTOFF 0.01 <[address] [facility] Comment: HCV antibody was non-reactive. There is no laboratory evidence of HCV infection. In most cases, no further action is required. However, if recent HCV exposure is suspected, a test for HCV RNA (test code 22258) is suggested. For additional information please refer to http://education.[employer]/faq/INI34q9 (This link is being provided for informational/ educational purposes only.) 12/30/2020 2:13 PM CDT 12/30/2020 2:16 PM CDT Narrative [facility] - 12/31/2020 11:46 AM CDT FASTING:YES FASTING: YES Treasure Hilario DO LABORATORY Final Result [facility] [address] [id number] from Last 3 Months or Most Recently Relevant to Health Maintenance Insurance [employer] Care Teams Hat Brim Curler Relationship Specialty Start Date End Date Treasure Hilario DO [address] [place] [address] PCP - General FAMILY PRACTICE 11/05/19
--- OUTSIDE RECORDS SUMMARY | 2024-11-28 00:14 | XMS_ITS | Encounter Summary ---
Author Organization [facility] Facility Care Team Providers Care Low Voltage Technician Name Role Phone Russell Geiger DO Primary Care Provider + Treasure Hilario MD Primary Care Provider Constantin Alexander MD Unavailable [phone] Will Patel MD Unavailable [phone] Encounter Details Date Type Department Care Team (Latest Contact Info) Description 05/20/2015 Orders Only [facility] CLINCONV Provider, MD Halie [address] [place] [id number] Social History Tobacco Use Types Packs/Day Years Used Date Smoking Tobacco: Never Assessed Comments Unknown Sex and Gender Information Value Date Recorded Sex Assigned at Not on file Legal Sex Female 4:48 PM HORSE WRANGLER Gender Identity Not on file Sexual Orientation Not on file documented as of this encounter Plan of Treatment Not on file documented as of this encounter Procedures Procedure Name Priority Date/Time Associated Diagnosis Comments SCAN - LABS 05/20/2015 12:00 AM HORSE WRANGLER documented in this encounter Results * SCAN - LABS (05/20/2015 12:00 AM HORSE WRANGLER) Narrative 05/20/2015 12:00 AM HORSE WRANGLER Ordered by an unspecified provider. us Historical Provider Final Res ult documented in this encounter Visit Diagnoses Not on filedocumented in this encounter Care Teams Low Voltage Technician Relationship Specialty Start Date End Date Russell Geiger DO [address] [address] PCP - General 11/05/18 01/07/20 Treasure Hliario MD [facility] [address] [address] PCP - General Family Medicine 01/08/20 Constantin Alexander MD [address] [place] [address] DR OL[address]A [address] [place] [address] Anesthesiologist Pain Management 04/02/22 11/28/23 Will Patel MD [address] [place] [address] DR OLIV[address] [place] [address] Consulting Physician Anesthesiology 11/29/23 documented as of this encounter
--- OUTSIDE RECORDS SUMMARY | 2024-11-28 00:14 | XMS_ITS | Clinical Summary ---
Author Organization [facility] Address [address] [place] [address] Care Team Providers Care Paper Twister Tender Name Role Phone Unavailable Primary Care Provider Unavailabl e Source Comments [facility],non-owned Affiliates and Associated Physician Practices is amultiple site organization consisting of ambulatory clinics and hospital sitesin [place], [place] and [place]. This disclosure is being madepursuant to the Care Everywhere program and may not contain all information available regarding this patient. 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 Gender Identity Not on file Sexual Orientation Not on file Plan of Treatment Health Maintenance Due Date Last Done Comments COLOGUARD (AGES 45-75) - COL ON CA SCREENING 1960 COLON MONITORING 1960 COLONOSCOPY - COLON CA SCREENING 1960 CT COLONOGRAPHY - COLON CA SCREENING 1960 Colorectal Cancer Screening 1960 FIT - COLON CA SCREENING 1960 FLEX SIG - COLON CA SCREENING 1960 LIPID TESTING 1960 MAMMOGRAM 1960 HIV SCREENING 11/17/1975 HEPATITIS C SCREENING 11/12/1978 DTAP/TDAP/TD VACCINES (1 - Tdap) 11/17/1979 PAP SMEAR 1981 PNEUMOCOCCAL VACCINE 50+ (1 of 1 - PCV) 2010 ZOSTER VACCINE (1 of 2) 2010 COVID-19 VACCINE ( - 2023-2 5 season) 2023 DEPRESSION SCREENING 04/15/2024 INFLUENZA VACCINE (#1) 2024 Respiratory Syncytial Virus (RSV) Vaccine Pt: or over 60 yrs (1 - 1-dose 75+ series) 11/17/2035 HEPATITIS B VACCINE Aged Out No longe r eligible based on patient's age to complete this topic HIB VACCINE Aged Out No longer eligi ble based on patient's age to complete this topic HPV VACCINE Aged Out No longer eligi ble based on patient's age to complete this topic MENINGOCOCCAL (Group B) VACC INE SHARED DECISION-MAKING Aged Out No longer eligibl e based on patient's age to complete this topic MENINGOCOCCAL GROUPS A/C/Y/W VACCINE Aged Out No longer eligible b ased on patient's age to complete this topic Insurance [facility] SELF PAY NO INSURANCE Member Subscriber Plan / Payer (Ef fective for All Dates) Name:Leticia Millan Member ID:Not on file Relation to Subscriber:Not on file Name:LETICIA MILLAN Subscriber ID:Not on file (Home) Address: [address] [place] [id number] Payer ID:Not on file Group ID:Not on file Type:Self Pay Address: [facility]
--- OUTSIDE RECORDS SUMMARY | 2024-11-28 00:14 | XMS_ITS | Clinical Summary ---
Author Organization [facility] Address [address] [place] [address] Care Team Providers Care Soil Surveyor Name Role Phone Treasure Hilario MD Primary Care Provider [phone] Will Patel MD Unavailable [phone] Allergies Active Allergy Reactions Criticality Noted Date Comments Yeast Stomach upset Low 02/25/2019 Stomach/GI Upset Medications naloxone (NARCAN) 4 mg/actuation spray,non-aeros ol Administer 1 spray into affected nostril(s) as needed for opioid reversal or respiratory depression 1 each 0 Active candesartan-hyd rochlorothiazid 32-25 mg tablet Take 0.5 tablets by mouth daily 3 Active benzonatate (TESSALON) 200 mg capsule TAKE 1 CAPSULE (200 MG TOTAL) BY MOUTH 3 (THREE) TIMES DAILY NEEDED FOR COUGH. 4 Active diclofenac sodium (VOLTAREN) 1 % gel Apply 4 g topically 4 (four) times a day 50 g 4 Active meloxicam (MOBIC) 15 mg tabletIndicatio ns:Chronic midline thoracic back pain,Chronic bilateral low back pain without sciatica Take 1 tablet (15 mg total) by mouth daily 30 tablet 2 4 Active Active Problems Problem Noted Date Diagnosed Date Left hip pain 04/28/2020 Degenerative disc disease, cervical 04/01/2020 DDD (degenerative disc disease), lumbar 01/12/20 20 Cervical radiculopathy 01/12/2020 Thoracic degenerative disc disease 01/12/2020 Degenerative cervical spinal stenosis 01/12/2020 Insomnia secondary to chronic pain 12/11/2019 Cervicalgia 11/17/2019 Chronic bilateral low back pain without sciatica 11/17/2019 Chronic midline thoracic back pain 11/17/2019 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 Chronic pain due to trauma 12/21/2016 Assessment & Plan (05/08/2019 3:35 PM WOODWORK TEACHER): Patient on 10mg norco QID PCP tapering dose Discussed risks of medication with patient and alternatives. Advised to follow up with PCP to discuss further. Essential hypertension 12/21/2016 Mixed hyperlipidemia 12/21/2016 Post-traumatic osteoarthritis 12/21/2016 Immunizations Immunization Administration Dates Next Due Influenza, Quadrivalent, Love l Culture-based MDCK, Antibiotic Free, Intramuscular 05/08/2018 Influenza, Quadrivalent, Love l Culture-based MDCK, Preservative Free, Antibiotic Free, Intramuscular 01/23/2019 Tdap 03/26/2018 Surgical History Surgery Date Site/Laterality Comments ROTATOR CUFF REPAIR Bilateral CARPAL TUNNEL RELEASE MYOMECTOMY SHOULDER SURGERY 04/15/2010 - 04/14/2011 Bilateral rotator cuff repair Medical History Medical History Date Comments Arthritis Hypertension Chronic pain disorder Low back pain Joint pain Mid back pain Family History Medical History Relation Name Comments Breast cancer Maternal Grandmother Cancer Mother Breast cancer Other Hypertension Other Uterine cancer Other Relation Name Status Comments Father Maternal Grandmother Mother Other Social History Tobacco Use Types Packs/Day Years Used Date Smoking Tobacco: Former Cigarettes Q uit: 2005 Smokeless Tobacco: Never Tobacco Cessation:Counseling Given: Not Answered Alcohol Use Standard Drinks/Week Comments Yes 0 (1 standard drink = 0.6 oz pur e alcohol) AUDIT-C Answer Date Recorded Frequency of Alcohol Consumption 2-4 times a sat08/29/2018 Average Number of Drinks 3 or 4 019 Frequency of Binge Drinking Not on file 08/13 PHQ-2 Answer Date Recorded PHQ-2 Total Score (If total score is 3 or more points, staff should administer the PHQ-9) 0 11/28/2023 PHQ-9 Answer Date Recorded PHQ-9 Total Score 0 11/28/2023 Personal Safety Answer Date Recorded Getting School Help Needed Not on file 03/27 Comments No Sex and Gender Information Value Date Recorded Sex Assigned at Not on file Legal Sex Female 4:48 PM WOODWORK TEACHER Gender Identity Not on file Sexual Orientation Not on file Obstetrics History Last Filed Vital Signs Vital Sign Reading Time Taken Comments Blood Pressure 146/78 11/28/2023 4:03 PM CDT Pulse 82 11/28/2023 4:03 PM CDT Temperature 36.7 C (98 F) 07/07/2020 12:01 PM CDT Respiratory Rate 18 11/28/2023 4:03 PM CDT Oxygen Saturation 98% 11/28/2023 4:03 PM CDT Inhaled Oxygen Concentration - - Weight 98 kg (216 lb) 11/15/2022 3:20 PM CDT Height 165.1 cm (5' 5) 11/15/2022 3:20 PM CDT Body Mass Index 35.94 11/15/2022 3:20 PM CDT Plan of Treatment Health Maintenance Due Date Last Done Comments Breast Cancer Screening-Mammogram 1960 Cervical Cancer Screening 1960 Colon Cancer Screening-Colonoscopy 1960 Hepatitis C Screening 1960 Hepatitis B Screening 1978 Regular Well Visit/Exam 18-64 1978 Zoster Vaccine (2 of 2) 05/24/2023 03/29/2023 Covid-19 Vaccine ( season) 2023 07/21/2021, 08/12/2020, 07/15/2020 Depression Screening 11/27/2024 11/28/2023, 11/28/2023, 09/26/2023, Additional history exists Influenza Vaccine (#1) 2024 , 03/27/2022, 12/30/2020, Additional history exists DTaP/Tdap/Td Vaccine (2 - Td or Tdap) 03/26/2028 03/26/2018 Colon Cancer Screening-DNA Stool Discontinued 12/27/2016 Colon Cancer Screening-FIT Discontinued 12/27/2016 Pneumococcal vaccine <65 Aged Out No longer eligible based on patient's age to complete this topic Goals Goal Patient Goal Type Associated Problems Recent Progress Patient-Stated? Author [facility] No Trudy Mae RN Note: Patient will establish a comfort-function goal and identify the pain level that will allow the patient to perform desired activities and achieve an acceptable quality of life. Procedures Procedure Name Priority Date/Time Associated Diagnosis Comments DNA STOOL Routine 12/27/2016 from Last 3 Months or Most Recently Relevant to Health Maintenance Results * DNA STOOL (12/27/2016) COLOGUARD Normal Historical Provider HEALTH MAINTENANCE Final Result from Last 3 Months or Most Recently Relevant to Health Maintenance [place] Care Teams Soil Surveyor Relationship Specialty Start Date End Date Treasure Hilario MD PCP - General Family Medicine 01/08/20 Will Patel MD [address] [place] [address] [address] Consulting Physician Anesthesiology 11/29/23
--- OUTSIDE RECORDS SUMMARY | 2024-11-28 00:14 | XMS_ITS | Encounter Summary ---
Author Organization [facility] Facility Care Team Providers Care Property Management Accountant Name Role Phone Russell Geiger DO Primary Care Provider + Treasure Hilario MD Primary Care Provider Constantin Alexander MD Unavailable [phone] Will Patel MD Unavailable [phone] Encounter Details Date Type Department Care Team (Latest Contact Info) Description 11/03/2010 Orders Only [facility] CLINCONV ProviderHalie MD [address] [place] [address] Social History Tobacco Use Types Packs/Day Years Used Date Smoking Tobacco: Never Assessed Comments Unknown Sex and Gender Information Value Date Recorded Sex Assigned at Not on file Legal Sex Female 4:48 PM 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 Historical Provider [facility] KENNY MARAVILLA Final Result documented in this encounter Visit Diagnoses Not on filedocumented in this encounter Care Teams Property Management Accountant Relationship Specialty Start Date End Date Russell Geiger DO [address] [address] PCP - General 11/05/18 01/07/20 Treasure Hilario MD [address] [address] PCP - General Family Medicine 01/08/20 Constantin Alexander MD [address] [facility] [address] OLIVA [address] [place] [address] Anesthesiologist Pain Management 04/02/22 11/28/23 Will Patel MD [address] [facility] [address] [place] [id number] Consulting Physician Anesthesiology 11/29/23 documented as of this encounter
--- OUTSIDE RECORDS SUMMARY | 2024-11-28 00:14 | XMS_ITS | Encounter Summary ---
Author Organization [facility] Facility Care Team Providers Care Open Claims Representative Name Role Phone Russell Geiger DO Primary Care Provider + Treasure Hilario MD Primary Care Provider [phone] Constantin Alexander MD Unavailable [phone] Will Patel MD Unavailable [phone] Encounter Details Date Type Department Care Team (Latest Contact Info) Description 05/01/2014 Orders Only [facility] CLINCONV Provider, MD aHlie [address] [place] [address] Social History Tobacco Use Types Packs/Day Years Used Date Smoking Tobacco: Never Assessed Comments Unknown Sex and Gender Information Value Date Recorded Sex Assigned at Not on file Legal Sex Female 4:48 PM PARKING 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 us Historical Provider Final Res ult documented in this encounter Visit Diagnoses Not on filedocumented in this encounter Care Teams Open Claims Representative Relationship Specialty Start Date End Date Russell Geiger DO [address] [address] PCP - General 11/05/18 01/07/20 Treasure Hilario MD [facility] [address] PCP - General Family Medicine 01/08/20 Constantin Alexander MD [address] [place] [address] DR OL[address]A [address] [place] [address] Anesthesiologist Pain Management 04/02/22 11/28/23 Will Patel MD [address] [place] [address] DR OLIVA [address] [place] [address] Consulting Physician Anesthesiology 11/29/23 documented as of this encounter
--- OUTSIDE RECORDS SUMMARY | 2024-11-28 00:14 | XMS_ITS | Continuity of Care Document ---
Author Organization [facility] Address [address] [facility] [address] [place] [address] Phone Care Team Providers Care Railroad Car Inspector Name Role Phone [facility] Unavailable Unavail able Srinivas Haas Unavailable Unavailable Procedures Procedure Date SV Poly Carb Sph +/- 7.12 To +/- 20 D [facility] Svcs Frames Purchases [facility] Frames Purchases SV Poly Carb Sph [place] To +/- 4 010 Anti-reflective Coating Tax - Medical Advance Directives Directive Yes / No Effective Date File Name No Information Encounters Encounter Description Practice Location Reason(s) For Visit Diagnoses Date Provider Providers Copied on Encounter formerly [facility], [address] [place] [address] [address], [place], [place], [id number], [place] tel:[phone] SEC [facility] No Information 5201 [address] [facility] [address] [facility], [address], [place], [place], [id number] , [place]. tel:[phone] Referring Provider: Gertrudis Lim OD, [address] [place], [address]. tel:[phone] walter Provider: Srinivas Haas, [address] [place] [address], [address]. tel:[phone] formerly [facility], [address] [place] [address] [address], [place], [place], [address], [place] tel:[phone] SEC [facility] No Information 0 [facility] [address] [facility], [address], [place], [place], [id number] , [place]. tel: [phone] Referring Provider: Gertrudis Lim OD, [address] [place], [address]. tel:[phone] walter Provider: Kimberly Lara, [address] [facility], [place], [address]. tel:[phone] Family History Family Member Type Diagnosis Age At Onset No Information Payers Payer name Insurance type Covered republican ID Authoriza tion(s) No Information Social History Type Description Quantity Date Captured Comments Sex Female Smoking Status No Information Chief Complaint And Reason For Visit No Information Reason For Referral Reason For Referral No Information History Of Present Illness Encounter Date Complaint History Of Prese nt Illness No Information Functional Status Date Functional Assessmen t No Information Instructions Date Instruction Additional Infor mation No Information Assessments Type Assessment Date No Information Patient Care Teams Name Effective Dates (start - stop) Status Members No Information
--- OUTSIDE RECORDS SUMMARY | 2024-11-28 00:14 | XMS_ITS | Encounter Summary ---
Author Organization [facility] Facility Care Team Providers Care Tool And Die Maker/Designer Name Role Phone uRssell Geiger DO Primary Care Provider + Treasure Hilario MD Primary Care Provider [phone] Constantin Alexander MD Unavailable [phone] Will Patel MD Unavailable [phone] Encounter Details Date Type Department Care Team (Latest Contact Info) Description 06/14/2017 Orders Only [facility] CLINCONV Provider, MD Halie [address] [place] [address] Social History Tobacco Use Types Packs/Day Years Used Date Smoking Tobacco: Never Assessed Comments Unknown Sex and Gender Information Value Date Recorded Sex Assigned at Not on file Legal Sex Female 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 Historical Provider Final Res ult documented in this encounter Visit Diagnoses Not on filedocumented in this encounter Care Teams Tool And Die Maker/Designer Relationship Specialty Start Date End Date Russell Geiger DO [facility] [address] PCP - General 11/05/18 01/07/20 Treasure Hilario MD [address] [address] PCP - General Family Medicine 01/08/20 Constantin Alexander MD [address] [place] [address] [address] [place] [address] Anesthesiologist Pain Management 04/02/22 11/28/23 Will Patel MD [address] [place] [address] [address] [place] [address] Consulting Physician Anesthesiology 11/29/23 documented as of this encounter
[2024-11-28 00:20] VITALS: O2SAT 98
--- NOTE | 2024-11-28 00:20 | ED_ITS ---
HPI - Allergic Reaction General Chief complaint: Allergic Reaction Stated complaint: allergic reaction Time Seen by Provider: 11/28/24 00:13 History of Present Illness HPI narrative: 64-year-old female with history of hypertension presenting to the emergency department potential allergy reaction. She states she is allergic to wasps and bees and feels like she got stone in the left side of face above her eyebrow that happened about a 30 p.m.. Since then she has been having swelling to her facial features and forehead is pressure in the left side. No throat closing sensations or scratchy throat, difficulty breathing or swallowing. No nausea, vomiting, abdominal pain, fever, chills, diarrhea or GI upset otherwise. She was otherwise in her normal state of health. She has had localized allergic reactions to previous bee stings before but she got stung her face and has never had facial swelling like this before. No lip swelling or difficulty speaking. No phonation changes. Did not take anything for symptom control prior to arrival. Related Data Home Medications ?Medication ?Instructions ?Recorded ?Confirmed ?Last Taken ?Type candesartan 32 0.5 tablet PO DAILY 11/27/23 02/13/24 01/27/24 History mg-hydrochlorothiazide 25 mg tablet Allergies Allergy/AdvReac Type Severity Reaction Status Date / Time No Known Allergies Allergy Unknown NONE Verified 11/28/24 00:18 Review of Systems 2 Review of Systems: As reviewed above in the HPI [facility] Past Medical History Medical History Chronic narcotic use HTN (hypertension) Obesity Left shoulder pain Surgical History Surgical History History of hysteroscopy (01/27/24) hysteroscopy D&C/ benign pathology of polyp H/O repair of right rotator cuff 2011 H/O repair of left rotator cuff 2008 Family History Family History Other High cholesterol Hypertension Social History Social History Smoking packs per day: 1 Smoking cigarettes per day: 20.0 Years smoked: 10 Smoking pack-years: 10.00 Smoking status: Former smoker Tobacco type: cigarettes Second hand tobacco smoke exposure: No Smoking end date: 01/15/94 Alcohol intake: current Substance use: never Substance use type: opiates Lack of Transportation: No Lack of Food: Never True Current Housing: Decline to Answer Concerned About Future Housing: Decline to Answer Difficulty Paying Gas/Electric Bills: Decline to Answer Difficulty Paying for Meds: Decline to Answer Currently Unemployed: Decline to Answer Education: Decline to Answer Difficulty w/ Childcare or Family Care: Decline to Answer Living arrangements: with family Occupation/Education: occupation Additional occupation/education comments: [employer] Gender identity (if verbalized by the patient): Female Sexual Orientation (if Verbalized by the Patient): Straight or Heterosexual Spiritual care concerns: No Exam 2 Narrative: GENERAL: [Well-appearing, well-nourished, and in no acute distress.] HEAD: Normocephalic, slight puffiness the left side of her forehead from recent bee sting EYES: PERRLA, extraocular movements are intact, periorbital edema left worse than right, vision intact ENT: No tongue or mild swelling, no neck swelling or brawny neck edema. No lymphadenopathy. Uvula is midline without any edema. No phonation changes. No drooling or trismus. NECK: Supple. CHEST: [Clear to auscultation. No respiratory distress.] HEART: [Regular rate and rhythm]. No murmur heard. [Normal peripheral pulses.] ABDOMEN: [Soft, nondistended], [nontender], [No rigidity or guarding] EXTREMITIES: Normal range of motion. [No edema.] SKIN: Warm, dry, no rash. NEURO: [No focal deficits]. Alert and oriented [x3.] PSYCH: [Normal mood and affect.] Course Vital Signs Vital signs: Vital Signs Temperature 37.1 C 11/28/24 00:13 Pulse Rate 82 11/28/24 00:13 Respiratory Rate 18 11/28/24 00:13 Pulse Oximetry 98 11/28/24 00:13 Oxygen Delivery Room Air 11/28/24 00:13 Temperature 37.1 C 11/28/24 00:13 Pulse Rate 69 11/28/24 04:49 Respiratory Rate 18 11/28/24 04:49 Blood Pressure 128/72 11/28/24 04:49 Pulse Oximetry 95 11/28/24 04:49 Oxygen Delivery Room Air 11/28/24 00:20 MDM - Allergic Reaction MDM Narrative Medical decision making narrative: 64-year-old female with history of hypertension presenting to the emergency department potential allergy reaction. She states she is allergic to wasps and bees and feels like she got stone in the left side of face above her eyebrow that happened about a 30 p.m.. Since then she has been having swelling to her facial features and forehead is pressure in the left side. No throat closing sensations or scratchy throat, difficulty breathing or swallowing. No nausea, vomiting, abdominal pain, fever, chills, diarrhea or GI upset otherwise. She was otherwise in her normal state of health. She has had localized allergic reactions to previous bee stings before but she got stung her face and has never had facial swelling like this before. No lip swelling or difficulty speaking. No phonation changes. Did not take anything for symptom control prior to arrival. Symptoms completely resolved after treatments here. Her symptoms have improved and no longer having any facial puffiness or facial swelling. Re-evaluated several times remains hemodynamically stable. Expressing desire for discharge. She was observed for numerous hours here in the emergency department without any symptom rebound. Sent home with steroids, Pepcid and diphenhydramine. Return precautions described. Epinephrine pen prescribed for anaphylaxis. Medical Records Attestation: I reviewed the patient's medical records. Lab Data Attestation: I reviewed the patient's lab results. 11/28/24 00:22 11/28/24 00:22 Labs: Lab Results 11/28/24 Range/Units 00:22 WBC 14.6 H (4.5-10.0) K/mm3 RBC 4.69 (4.2-5.4) M/mm3 Hgb 13.5 (12.0-15.0) g/dL Hct 41.8 (37.0-47.0) % MCV 89.1 (80-100) fl MCH 28.8 (26-34) pg MCHC 32.3 (32-36) g/dl RDW 13.6 (11.5-14.5) % Plt Count 334 (150-375) k/mm3 MPV 9.5 (7.4-10.4) fl Immature Gran % (Auto) 0.9 H (0-0.5) % Neut % (Auto) 62.2 (45.5-73.1) % Lymph % (Auto) 28.4 (18.3-44.2) % Hart % (Auto) 5.1 (2.6-8.5) % Eos % (Auto) 2.9 (0-4.4) % Baso % (Auto) 0.5 (0.2-1.2) % Lymph # (Auto) 4.14 H (0.9-3.2) K/mm3 Hart # (Auto) 0.8 H (0.1-0.6) K/mm3 Eos # (Auto) 0.4 H (0-0.3) K/mm3 Baso # (Auto) 0.1 (0.0-0.1) K/mm3 Abs Immat Gran (auto) 0.13 H (0.00-0.031) K/mm3 Absolute Neuts (auto) 9.1 H (1.3-6.7) K/mm3 Absolute Nucleated RBC 0.000 (0.0-0.012) K/mm3 Nucleated RBC % 0.0 (0.0-0.2) % Sodium 137 (137-145) mmol/L Potassium 3.4 (3.4-5.0) mmol/L Chloride 99 (98-107) mmol/L Carbon Dioxide 31 H (22-30) mmol/L Anion Gap 7 (4-12) mmol/L BUN 18 H (7-17) mg/dL Creatinine 0.90 (0.7-1.0) mg/dL Estim Creat Clear Calc 64 ml/min Estimated GFR > 60 (59 - ) Glucose 132 H (65-110) mg/dL Calcium 9.0 (8.4-10.2) mg/dL Discharge Plan Discharge Clinical Impression: Allergic reaction, Urticaria, Angioedema Patient Disposition: Home Condition: Stable Instructions: Antibiotic Form, Allergies (ED) Additional Instructions: Follow-up with regular doctor, we have prescribed an EpiPen and allergy medications. Return with any emergent concerns. Continue taking the daily prednisone for 5 days Patient Language: Ghanaian Prescriptions: New prednisone 50 mg tablet 50 mg PO DAILY 5 Days Qty: 5 0RF epinephrine [EpiPen 2-David] 0.3 mg/0.3 mL auto-injector 0.3 mg IM ONCE Qty: 2 0RF Rx Instructions: as a single dose; may repeat once famotidine [Pepcid] 20 mg tablet 20 mg PO BID PRN (Reason: Allergic Reaction) Qty: 20 0RF No Action candesartan-hydrochlorothiazid 32-25 mg tablet 0.5 tablet PO DAILY ibuprofen 800 mg tablet 800 mg PO TID Qty: 30 0RF Follow-up/Referrals: Sulaiman,Treasure High MD [Primary Care Provider] - Time of Disposition: 04:43
[2024-11-28] MEDS: FAMOTIDINE 20 MG/2 ML VIAL IV PUSH (00:23)
[2024-11-28] MEDS: LACTATED RINGERS 1,000 ML 999 ML IV CONT (00:24)
[2024-11-28 00:28] LABS: Hematocrit 41.8 % (37.0-47.0); Hemoglobin 13.5 g/dL (12.0-15.0); Immature Granulocyte Percent A 0.9 % (0-0.5); Lymphocytes Absolute Auto 4.14 K/mm3 (0.9-3.2); Mean Corpuscular HGB Conc 32.3 g/dl (32-36); Mean Corpuscular Hemoglobin 28.8 pg (26-34); Mean Corpuscular Volume 89.1 fl (80-100); Nucleated Red Blood Cells Absolute Auto 0.000 K/mm3 (0.0-0.012); Nucleated Red Blood Cells Perc 0.0 % (0.0-0.2); Platelet Count Result 334 k/mm3 (150-375); Red Blood Count 4.69 M/mm3 (4.2-5.4); White Blood Count 14.6 K/mm3 (4.5-10.0)
--- OUTSIDE RECORDS SUMMARY | 2024-11-28 00:34 | XMS_ITS | Clinical Summary ---
Author Organization [facility] Address [address] [facility] [place] [address] Care Team Providers Care Stockfeed Miller Name Role Phone Unavailable Primary Care Provider Unavailabl e Source Comments [facility],non-owned Affiliates and Associated Physician Practices is amultiple site organization consisting of ambulatory clinics and hospital sitesin [place], [place], [place] and [place]. This disclosure is being madepursuant to the Care Everywhere program and may not contain all information available regarding this patient. Last updated 18.[facility] [employer] Social History Tobacco Use Types Packs/Day Years Used Date Smoking Tobacco: Never Assessed Comments Unknown Sex and Gender Information Value Date Recorded Sex Assigned at Not on file Legal Sex Female 6:30 AM FASHION COORDINATOR Gender Identity Not on file Sexual Orientation [...] patient's age to complete this topic Insurance [facility] SELF PAY NO INSURANCE Member Subscriber Plan / Payer (Ef fective for All Dates) Name:Leticia Millan Member ID:Not on file Relation to Subscriber:Not on file Name:LETICIA MILLAN Subscriber ID:Not on file (Home) Address: [address] [place] [id number] Payer ID:Not on file Group ID:Not on file Type:Self Pay Address: [facility]
--- OUTSIDE RECORDS SUMMARY | 2024-11-28 00:34 | XMS_ITS | Encounter Summary ---
Author Organization [facility] Facility Care Team Providers Care Adult Literacy Teacher Name Role Phone Russell Geiger DO Primary Care Provider + Treasure Hilario MD Primary Care Provider Constantin Alexander MD Unavailable [phone] Will Patel MD Unavailable [phone] Encounter Details Date Type Department Care Team (Latest Contact Info) Description 09/24/2014 Orders Only MMG CLINCONV Provider, MD Halie [address] [place] [address] Social History Tobacco Use Types Packs/Day Years Used Date Smoking Tobacco: Never Assessed Comments Unknown Sex and Gender Information Value Date Recorded Sex Assigned at Not on file Legal Sex Female 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 Gender Identity Not on file Sexual Orientation [...] on filedocumented in this encounter Care Teams Adult Literacy Teacher Relationship Specialty Start Date End Date Russell Geiger DO [facility] [address] PCP - General 11/05/18 01/07/20 Treasure Hilario MD [address] [address] PCP - General Family Medicine 01/08/20 Constantin Alexander MD [address] [place] [address] DR [address]A [address] [place] [address] Anesthesiologist Pain Management 04/02/22 11/28/23 Will Patel MD [address] [place] [address] DR [address]A [address] [place] [address] Consulting Physician Anesthesiology 11/29/23 documented as of this encounter
--- OUTSIDE RECORDS SUMMARY | 2024-11-28 00:34 | XMS_ITS | Encounter Summary ---
Author Organization [facility] Facility Care Team Providers Care Sonar Technician Name Role Phone Russell Geiger DO Primary Care Provider + Treasure Hilario MD Primary Care Provider Constantin Alexander MD Unavailable [phone] Will Patel MD Unavailable [phone] Encounter Details Date Type Department Care Team (Latest Contact Info) Description 11/03/2010 Orders Only MMG CLINCONV ProviderHalie MD [address] [place] [address] Social History Tobacco Use Types Packs/Day Years Used Date Smoking Tobacco: Never Assessed Comments Unknown Sex and Gender Information Value Date Recorded Sex Assigned at Not on file Legal Sex Female 4:48 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 Gender Identity Not on file Sexual Orientation [...] on filedocumented in this encounter Care Teams Sonar Technician Relationship Specialty Start Date End Date Russell Geiger DO [address] [address] PCP - General 11/05/18 01/07/20 Treasure Hilario MD [address] [address] PCP - General Family Medicine 01/08/20 Constantin Alexander MD [address] [facility] [address] [place] [address] Anesthesiologist Pain Management 04/02/22 11/28/23 Will Patel MD [address] [facility] [address] [place] [address] Consulting Physician Anesthesiology 11/29/23 documented as of this encounter
--- OUTSIDE RECORDS SUMMARY | 2024-11-28 00:34 | XMS_ITS | Encounter Summary ---
Author Organization [facility] Facility Care Team Providers Care Mender Knit Goods Name Role Phone Russell Geiger DO Primary Care Provider + Treasure Hilario MD Primary Care Provider Constantin Alexander MD Unavailable [phone] Will Patel MD Unavailable [phone] Encounter Details Date Type Department Care Team (Latest Contact Info) Description 05/01/2014 Orders Only MMG CLINCONV Provider, MD Halie [address] [place] [address] Social History Tobacco Use Types Packs/Day Years Used Date Smoking Tobacco: Never Assessed Comments Unknown Sex and Gender Information Value Date Recorded Sex Assigned at Not on file Legal Sex Female 4:48 PM PROJECT DEVELOPMENT LEADER Gender Identity Not on file Sexual Orientation Not on file documented as of this encounter Plan of Treatment Not on file documented as of this encounter Procedures Procedure Name Priority Date/Time Associated Diagnosis Comments SCAN - LABS 05/01/2014 12:00 AM PROJECT DEVELOPMENT LEADER documented in this encounter Results * SCAN - LABS (05/01/2014 12:00 AM PROJECT DEVELOPMENT LEADER) Narrative 05/01/2014 12:00 AM PROJECT DEVELOPMENT LEADER Ordered by an unspecified provider. us Historical Provider Final Res ult documented in this encounter Visit Diagnoses Not on filedocumented in this encounter Care Teams Mender Knit Goods Relationship Specialty Start Date End Date Russell Geiger DO [address] [address] PCP - General 11/05/18 01/07/20 Treasure Hilario MD [facility] [address] PCP - General Family Medicine 01/08/20 Constantin Alexander MD [address] [place] [address] [address] [place] [address] Anesthesiologist Pain Management 04/02/22 11/28/23 Will Patel MD [address] [place] [address] [address] [place] [address] Consulting Physician Anesthesiology 11/29/23 documented as of this encounter
--- OUTSIDE RECORDS SUMMARY | 2024-11-28 00:34 | XMS_ITS | Continuity of Care Document ---
Author Organization [facility] Address [address] [facility] [address] [place] [address] Phone Care Team Providers Care Data Lead Name Role Phone [facility] Unavailable Unavail able Srinivas Haas Unavailable Unavailable Procedures Procedure Date SV Poly Carb Sph +/- 7.12 To +/- 20 D [facility] Frames Purchases [facility] Fr[employer] Purchases SV Poly Carb Sph [place] To +/- 4 010 Anti-reflective Coating Tax - Medical Advance Directives Directive Yes / No Effective Date File Name No Information Encounters Encounter Description Practice Location Reason(s) For Visit Diagnoses Date Provider Providers Copied on Encounter [facility], [address] [place] [address] [address], [place], [place], [id number], [place] tel:[phone] SEC [facility] No Information 5[address] [facility] [address] [facility], [address], [place], [place], [id number] , [place]. [phone] Referring Provider: Gertrudis Lim OD, [address] [place], [address]. tel:[phone] walter Provider: Srinivas Haas, [address] [place] [address], [address]. tel:[phone] [facility], [address] [place] [address] [address], [place], [place], [id number], [place] tel:[phone] SEC [facility] No Information 0 [facility] [address] [facility], [address], [place], [place], [id number] , [place]. tel: [phone] Referring Provider: Gertrudis Lim OD, [address] [place], [address]. tel:[phone] walter Provider: Kimberly Lara, [address] [facility], [place], [address]. tel:[phone] Family History Family Member Type Diagnosis Age At Onset No Information Payers Payer name Insurance type Covered alliance party ID Authoriza tion(s) No Information Social History [...]
--- OUTSIDE RECORDS SUMMARY | 2024-11-28 00:34 | XMS_ITS | Encounter Summary ---
Author Organization [facility] Facility Care Team Providers Care Engineering Department Chair Name Role Phone Russell Geiger DO Primary Care Provider + Treasure Hilario MD Primary Care Provider Constantin Alexander MD Unavailable [phone] Will Patel MD Unavailable [phone] Encounter Details Date Type Department Care Team (Latest Contact Info) Description 10/24/2016 Orders Only [facility] CLINCONV Provider, MD Halie [address] [place] [address] Social History Tobacco Use Types Packs/Day Years Used Date Smoking Tobacco: Never Assessed Comments Unknown Sex and Gender Information Value Date Recorded Sex Assigned at Not on file Legal Sex Female 4:48 PM VETERINARIAN EPIDEMIOLOGIST Gender Identity Not on file Sexual Orientation [...] on filedocumented in this encounter Care Teams Engineering Department Chair Relationship Specialty Start Date End Date Russell Geiger DO [facility] [address] PCP - General 11/05/18 01/07/20 Treasure Hilario MD [address] [address] PCP - General Family Medicine 01/08/20 Constantin Alexander MD [address] [place] [address] DR OLIVA [address] [place] [address] Anesthesiologist Pain Management 04/02/22 11/28/23 Will Patel MD [address] [place] [address] DR OLIVA [address] [place] [address] Consulting Physician Anesthesiology 11/29/23 documented as of this encounter
--- OUTSIDE RECORDS SUMMARY | 2024-11-28 00:34 | XMS_ITS | Clinical Summary ---
Author Organization [facility] Building Address [address] [place] [address] Care Team Providers Care Tester Armature Or Fields Name Role Phone Treasure Hilario MD Primary Care Provider [phone] Will Patel MD Unavailable [phone] Allergies Active Allergy Reactions Criticality Noted Date [...] 11/17/2019 Chronic midline thoracic back pain 11/17/2019 meterman (current) use of opiate analgesic 07/2019 HNP (herniated nucleus pulposus), lumbar 018 Overview (08/29/2018): Formerly followed by IPM (Dr Hair) Obesity (BMI 30-39.9) 12/20/2017 Assessment & Plan (05/08/2019 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
--- OUTSIDE RECORDS SUMMARY | 2024-11-28 00:34 | XMS_ITS | Encounter Summary ---
Author Organization [facility] Facility Care Team Providers Care Natural Resource Specialist Name Role Phone Russell Geiger DO Primary Care Provider + Treasure Hilario MD Primary Care Provider [phone] Constantin Alexander MD Unavailable [phone] Will Patel MD Unavailable [phone] Encounter Details Date Type Department Care Team (Latest Contact Info) Description 05/20/2015 Orders Only [facility] CLINCONV Provider, MD Halie [address] [place] [address] Social History Tobacco Use Types Packs/Day Years Used Date Smoking Tobacco: Never Assessed Comments Unknown Sex and Gender Information Value Date Recorded Sex Assigned at Not on file Legal 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 us Historical Provider Final Res ult documented in this encounter Visit Diagnoses Not on filedocumented in this encounter Care Teams Natural Resource Specialist Relationship Specialty Start Date End Date Russell Geiger DO [address] [address] PCP - General 11/05/18 01/07/20 Treasure Hilario MD [facility] [address] [address] PCP - General Family Medicine 01/08/20 Constantin Alexander MD [address] [place] [address] DR OLIVA [address] [place] [address] Anesthesiologist Pain Management 04/02/22 11/28/23 Will Patel MD [address] [place] [address] DR OLIVA [address] [place] [address] Consulting Physician Anesthesiology 11/29/23 documented as of this encounter
--- OUTSIDE RECORDS SUMMARY | 2024-11-28 00:34 | XMS_ITS | Encounter Summary ---
Author Organization [facility] Facility Care Team Providers Care Communication Professor Name Role Phone Russell Geiger DO Primary Care Provider + Treasure Hilario MD Primary Care Provider [phone] Constantin Alexander MD Unavailable [phone] Will Patel MD Unavailable [phone] Encounter Details Date Type Department Care Team (Latest Contact Info) Description 06/14/2017 Orders Only [facility] CLINCONV Provider, MD Halie [address] [place] [address] Social History Tobacco Use Types Packs/Day Years Used Date Smoking Tobacco: Never Assessed Comments Unknown Sex and Gender Information Value Date Recorded Sex Assigned at Not on file 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 Gender Identity Not on file Sexual Orientation [...] on filedocumented in this encounter Care Teams Communication Professor Relationship Specialty Start Date End Date Russell Geiger DO [facility] [address] [address] PCP - General 11/05/18 01/07/20 Treasure Hilario MD [address] [address] PCP - General Family Medicine 01/08/20 Constantin Alexander MD [address] [place] [address] DR OLIVA [address] [place] [address] Anesthesiologist Pain Management 04/02/22 11/28/23 Will Patel MD [address] [place] [address] DR OLIVA [address] [place] [address] Consulting Physician Anesthesiology 11/29/23 documented as of this encounter
--- OUTSIDE RECORDS SUMMARY | 2024-11-28 00:34 | XMS_ITS | Clinical Summary ---
Author Organization 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 07/2019 HNP (herniated nucleus pulposus), lumbar 018 Overview (11/05/2019): Formerly followed by IPM (Dr Hair) Essential hypertension 12/21/2016 Post-traumatic osteoarthritis 12/21/2016 Encounters Date Type Department Care Team Description 11/26/2024 4:20 PM CDT Office Visit [facility] Family Medicine - [address], [address] [place] [address] Treasure Hilario, DO Physical (Patient here today [...] MCG/ 0.5 ML DOSE 08/12/2020,07/15/2020 MODERNA COVID-19 (IP ARCHITECT AIMEE HEIDI), MRNA, LNP-S, PF, 50 MCG/ 0.25 ML DOSE 07/21/2021 Shingrix 03/29/2023 Tdap (Generic) 03/26/2018 Family History Medical History Relation Comments Hypertension Brother Cancer Maternal Grandmother paper mill manager Cancer Mother lung Hypertension Mother Relation Status [...] 11/17/2035 Hepatitis C Completed 12/30/2020 PHQ-2 (Physician Ruby) Completed 11/26/2024 Meningococcal B Vaccine Aged Out [...] AM CDT) COLOGUARD RESULT Negative Negative EXA SourceDNA (CLIA #:[id number]) Comment: NEGATIVE TEST RESULT. A negative Cologuard [...] Hart et al, N Engl J Med 2014;370(14):6865-1174) The normal value (reference range) for this assay is negative. COLOGUARD RE-SCREENING RECOMMENDATION: Periodic colorectal cancer screening is an important part of preventive healthcare for asymptomatic individuals at average risk for colorectal cancer. Following a negative Cologuard result, the [place] [employer] Society and U.S. Multi-Society Task Force screening guidelines recommend a Cologuard re-screening interval of 3 years. References: [place] [employer] Guideline for Colorectal Cancer Screening: https://www.cancer.org/cancer/truny-nxynbp-hmcinp/luqyzyozk-erphvjptj-ukjupcy/ac s-rec ommendations.html.; Mk GARZA, Shayy OLIVERA, Juan F ManciniK, Colorectal Cancer Screening: Recommendations for Physicians and Patients from the U.S. Multi-Society Task Force on Colorectal Cancer Screening , Am J Gastroenterology 2017; 112:0098-8698. TEST DESCRIPTION: Composite algorithmic analysis of stool [...] Hart et al, N Engl J Med 2014;370(14):4271-4711.) Cologuard may produce a false negative or false positive result (no colorectal cancer or precancerous polyp present at colonoscopy follow up). A negative Cologuard test result does not guarantee the absence of CRC or advanced adenoma (pre-cancer). The current Cologuard screening interval is every 3 years. ([place] [employer] and U.S. Multi-Society Task Force). Cologuard performance data in a 10,000 patient pivotal study using colonoscopy as the reference method can be accessed at the following location: www.UbiCast/results. Additional description of the Cologuard test process, warnings and precautions can be found at www.Editoriallyrd.Oppa. STOOL STOOL SPECIMEN / Unknown 10/18/2021 10:50 AM CDT 10/19/2021 7:42 PM CDT Treasure Hilario DO BODY FLUIDS AND STOOLS ORDERA BLES Final Result [facility], [facility] [address] [place] [address], [facility] (CLIA #:[id number]) [address] [place] [address] * HEPATITIS C ANTIBODY W/RFX TO HCV [...] a test for HCV RNA (test code 17671) is suggested. For additional information please refer to http://education.GL 2ours.Oppa/faq/KNA33l3 (This link is being provided for informational/ educational purposes only.) 12/30/2020 2:13 PM CDT 12/30/2020 2:16 PM CDT Narrative [facility] - 12/31/2020 11:46 AM CDT FASTING:YES FASTING: YES Treasure Hilario DO LABORATORY Final Result [facility] [address] [place] [id number] from Last 3 Months or Most Recently Relevant to Health Maintenance Insurance [employer] Care Teams Economist Research Assistant Relationship Specialty Start Date End Date Treasure Hilario DO [address] [place] [address] PCP - General FAMILY PRACTICE 11/05/19
[2024-11-28 01:09] LABS: Anion Gap 7 mmol/L (4-12); Blood Urea Nitrogen 18 mg/dL (7-17); Calcium 9.0 mg/dL (8.4-10.2); Carbon Dioxide 31 mmol/L (22-30); Chloride 99 mmol/L (98-107); Estimated CRCL calculation 64 ml/min; Estimated Glomerular Filt Rate > 60; Glucose 132 mg/dL (65-110); Potassium 3.4 mmol/L (3.4-5.0); Sodium 137 mmol/L (137-145)
--- NOTE | 2024-11-28 03:02 | PC.NURSE ---
Patients symptoms have improved, patient states she feels much better. ERP notified.
[2024-11-28 04:49] VITALS: BP 128/72; PULSE 69; RESP 18; O2SAT 95
== END 2024-11-28 04:52 | disposition home or self-care (01) ==
PROVIDERS: Emergency Provider Student in an Organized Health Care Education/Training Program; PCP Family Medicine
DX: T78.3XXA Angioneurotic edema, initial encounter (principal); I10 Essential (primary) hypertension; E66.9 Obesity, unspecified; Z68.38 Body mass index [BMI] 38.0-38.9, adult; Z87.891 Personal history of nicotine dependence
CPT/HCPCS: 36415; 80048; 85025; 96361; 96374; 96375; 99283; 99284; J1200; J2919; J7120